=== PATIENT | female | born 1950 | race Caucasian/White ===

== ENCOUNTER 2017-01-07 14:30 | Inpatient (IN) | payer MEDICARE ==
[~2017-01-07] VITALS: Ht 162.5 cm; Wt 129.9 kg
--- NOTE | ~2017-01-07 | PR ---
[place], [place] PROGRESS NOTE NAME: RED STILL UNIT #: [id number] ROOM: 510 DOCTOR: CLAYTON GARCIA MD BIRTHDATE: [birth year] DOS: 01/11/2017 SUBJECTIVE: The patient stated she feels slightly better. Her cough is better than when she came in. OBJECTIVE: GENERAL: On exam today, she is awake and alert and oriented. VITAL SIGNS: Pressure is 119/54, pulse of 56, respirations 21, temperature 97.4. LUNGS: Diminished breath sounds. A few rales heard at the lung bases. HEART: Regular. ABDOMEN: Obese, soft. EXTREMITIES: Trace lymphedema noted. IMAGING DATA: Chest CT scan shows enlarged heart with trace pericardial effusion, multiple mediastinal and hilar and axillary lymph nodes, streaky consolidative opacities in upper lobes as well as right middle lobe and lower lobes. ASSESSMENT AND PLAN: 1. Urinary tract infection with Klebsiella pneumoniae, on antibiotics. 2. Multifocal pneumonia, on IV antibiotics. The patient does carry a diagnosis of rheumatoid arthritis and will need to be worked up for rheumatoid lung if she continues to have problems. Clinically, the patient feels that she is getting better. X-ray is pending this morning. If it looks improved, then we should be able to discharge the patient home on antibiotics, but I am waiting for Dr. Sanz to decide whether she can go home on p.o. Since it is an extensive pneumonia, she may need IV antibiotics. 3. Acute hypoxic respiratory failure. Oxygen saturation is improved. 4. Benign hypertension, controlled. CLAYTON GARCIA MD CM:PNTRANS [phone] CLAYTON GARCIA MD 01/11/17 0854 interface
--- NOTE | ~2017-01-07 | PR ---
[place], [place] PROGRESS NOTE [facility] [id number] UNIT #: [id number] ROOM: 510 DOCTOR: MOHINI STAHL MD,SOLO BIRTHDATE: [birth year] DOS: 01/09/2017 PULMONARY FOLLOWUP NOTE SUBJECTIVE: She has been still noticed with coughing with intermittent sputum expectoration. Denies any symptoms of chest pain or any abdominal pain. She has been noted with chronic lymphedema of lower extremities as well, which remains unchanged. She was noticed more comfortable at this time, sitting on the side of the bed this morning at the time of the assessment. OBJECTIVE: VITAL SIGNS: Shows a normal temperature, respiratory rate 18, heart rate 63, blood pressure 105/48. Pulse oxygen saturation of the patient recorded on 2 liters nasal cannula 97% saturation. HEENT: Chronic obesity. NECK: Supple, obese. CARDIOVASCULAR SYSTEM: S1, S2 is audible. LUNGS: Noted moderate decreased breath sounds with questionable wheezing, no crackles. ABDOMEN: Soft, nontender. LABORATORY DATA: The patient's sputum culture showing preliminary normal callie. The Gram stain was pending. Urine culture, the patient reported as having growth of Klebsiella pneumoniae, which are noted sensitive to multiple antibiotics. Blood culture from the for this patient showed no bacterial growth. CBC this morning was essentially noted as normal CBC. CT scan of the chest that I ordered yesterday for the patient was reviewed for this patient without contrast shows large area of consolidation, infiltration were noted of the patient in the lungs, which was present in the left lingula, left upper, right upper and the right middle lobe. Large amount of mediastinal fat for the patient was also noted secondary to chronic obesity. The mediastinal structure for the patient could not be assessed very clearly because of lack of IV contrast. However, small nonspecific lymphadenopathy was noted in the hilar area, precarinal area and possibly in the hilum as well. There were no pleural effusions. IMPRESSION: The patient with bilateral acute multilobar pneumonia for this patient with possible consideration of acute pneumonia secondary to aspiration, possibility of acute eosinophilic pneumonia with bacterial infection as well. PLAN OF TREATMENT: The patient will be ordered IV Solu-Medrol 40 mg b.i.d. for the ____ noninfectious etiology, current pulmonary infiltration, lymphadenopathy which was noted nonspecific, need to be further assessed as an outpatient. Continue in the meantime other previous treatment therapy, plan of management. Usual care. Monitor results of the sputum culture. Other supportive plan and management as well. Usual treatment, all other therapies. Monitor chest x-ray. The patient to be continued as patient for assessment in progression of the pulmonary infiltration. Repeat chest x-ray of patient was ordered to be done in the next couple of days. [place], [place] PROGRESS NOTE NAME: [facility] STILL [facility]: [id number] UNIT #: [id number] ROOM: [facility] DOCTOR: SOLO MONROY MD BIRTHDATE: [birth year] SOOL RAJAN MD CM:PNTRANS [phone] SOLO STAHL MD 01/10/17 0439 interface
--- NOTE | ~2017-01-07 | PR ---
[place], [place] PROGRESS NOTE NAME: RED STILL UNIT #: [id number] ROOM: 510 DOCTOR: SOLO MONROY MD BIRTHDATE: [birth year] DOS: 01/11/2017 PULMONARY PROGRESS NOTE SUBJECTIVE: She has been noted comfortable at this time, sitting on the side of the bed this morning. The coughing and shortness of breath for the patient has been improving progressively. Edema of the lower extremity of the patient has been noted to be stable as well. OBJECTIVE: VITAL SIGNS: For the patient which has been recorded showed the temperature of the patient noted as normal. The respiratory rate of the patient recorded as 18, heart rate of 68, blood pressure 133/40. Pulse oxygen saturation on 2 liters nasal cannula was 92% saturation recorded. HEENT: Examination shows head was atraumatic. Eyes nonicterus. NECK: Supple. CARDIOVASCULAR: S1, S2 is audible. LUNGS: Noted without any wheezing or crackles at the present time. ABDOMEN: Soft, obese. EXTREMITIES: Shows no new change. Chronic venous stasis and lymphedema. LABORATORY DATA: Chest x-ray of the patient that was done this morning showed reduction in previously noted pulmonary infiltration as compared to the previous chest x-ray. Creatinine for the patient today was noted as normal. IMPRESSION: The patient with resolving acute respiratory failure progressively of patient's current medical management with improving acute bacterial pneumonia as well as aspiration and acute eosinophilic in nature, responding to treatment very well. PLAN OF TREATMENT: Continuation of the current plan of management for the patient with bronchodilator. The dose of Solu-Medrol for the patient will be decreased to 40 mg daily as well. Other supportive therapy, plan and management to be continued. Discharge planning could be started for the patient as well. [place], [place] PROGRESS NOTE NAME: RED STILL UNIT #: [id number] ROOM: 510 DOCTOR: SOLO MONROY MD BIRTHDATE: [birth year] SOLO RAJAN MD CM:PNTRANS [phone] SOLO STAHL MD 01/13/17 0057 interface
--- NOTE | ~2017-01-07 | PR ---
[place], [place] [facility]GRESS NOTE [id number] UN[facility] #: [id number] ROOM: 510 DOCTOR: CLAYTON GARCIA MD BIRTHDATE: [birth year] DOS: 01/13/2017 SUBJECTIVE: The patient was seen by me yesterday morning. At that time, she did not have any complaints at all. Later on in the afternoon, the nursing staff called saying that the patient was increasingly short of breath and hypoxic and the chest x-ray in fact done yesterday showed improvement of the pneumonia, so 1 dose of diuretic IV was given and patient diuresed nicely. She does not have any complaints after that. She has been improving since then, she does not have any trouble during the night. OBJECTIVE: VITAL SIGNS: Graphic trend shows a pressure of 152/60, pulse of 82, respirations 20, temperature 98.7. LUNGS: Diminished breath sounds. HEART: Regular. ABDOMEN: Obese. EXTREMITIES: Trace edema in the lower legs and quite a lot of swelling in the feet. ASSESSMENT AND PLAN: 1. Hypoxic respiratory failure. It is possible that the patient is developing some diastolic congestive heart failure. Echocardiogram is pending today. Home assessment of O2 will be ordered today. 2. Multifocal pneumonia, on IV antibiotics, improvement clinically, we can discontinue the steroids. 3. Failure to thrive. The patient is getting PT, OT. CLAYTON GARCIA MD CM:PNTRANS CLAYTON GARCIA MD 01/13/1734 interface
--- NOTE | ~2017-01-07 | PR ---
[place], [place] PROGRESS NOTE [id number] UNIT #: [id number] ROOM: 510 DOCTOR: MOHINI STAHL MD,SOLO BIRTHDATE: [birth year] DOS: 01/12/2017 SUBJECTIVE: She has been noted without any acute respiratory symptoms of shortness of breath, coughing. There was no chest pain. Shortness of breath, the patient has been improving. There was no wheezing. OBJECTIVE: VITAL SIGNS: Blood pressure for the patient recorded 130/66, heart rate of 55, respiratory rate 18, temperature was normal. The pulse oxygen saturation of the patient recorded as 100% on 2 L nasal cannula. HEENT: Chronic obesity. NECK: Supple. CARDIOVASCULAR SYSTEM: S1, S2 audible. LUNGS: Noted without any wheezing or crackles. ABDOMEN: Soft, nontender. IMPRESSION: The patient with progressive resolution of bilateral lobar pneumonia. The patient secondary to aspiration, responding to treatment very well. PLAN OF TREATMENT: Continue the patient's current therapy, plan of management as in progress. Usual care. All other supportive plan of management. Consider possible discharge the patient in the morning from the pulmonary standpoint if needed. SOLO RAJAN MD CM:PNTRANS [phone] SOLO STAHL MD 01/12/17 1519 interface
--- NOTE | ~2017-01-07 | PR ---
[place], [place] PROGRESS NOTE NAME: RED STILL UNIT #: [id number] ROOM: 510 DOCTOR: RACHAEL ALCALA MD BIRTHDATE: [birth year] DOS: 01/12/2017 CARDIOLOGY FOLLOWUP VISIT NOTE REASON FOR VISIT: Bradycardia. SUBJECTIVE: The patient is feeling better. Less short of breath. Denies any dizziness or palpitations. No PND. No orthopnea. Edema is better. No nausea, vomiting, or diarrhea. No fever or chills. No cough. No hemoptysis. No blurred vision or double vision. RHYTHM STRIPS: The patient was in sinus rhythm, rate is 55-60. PHYSICAL EXAMINATION: VITAL SIGNS: Blood pressure of 130/66, pulse 58, respiratory rate is 18. GENERAL: Alert, comfortable, in no acute distress. The patient is sitting at the bedside in the chair. HEENT: Pupils are round and equal. No jaundice. Tongue is moist, and pharynx is clear. NECK: Supple. No distended neck veins. No carotid bruit. CHEST: Symmetrical, nontender. LUNGS: Few scattered rhonchi, but good air entry bilaterally. HEART: Regular rhythm, no S3. Grade 1/6 systolic murmur. ABDOMEN: Obese, nontender. Bowel sounds normal. EXTREMITIES: Showed chronic stasis dermatitis with edema. Distal pulses are fair. SKIN: Warm and dry. No cyanosis. NEUROLOGIC: The patient is alert and oriented. No focal neurologic deficits. IMPRESSION: 1. Sinus bradycardia, asymptomatic. Heart rates are much better once her Coreg was discontinued. 2. Hypertension, stable on current medications. 3. Chronic obstructive pulmonary disease. 4. Pneumonia. 5. Morbid obesity. RECOMMENDATIONS: 1. Continue current medications. 2. 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 3. History of symptomatic bradycardia with a heart rate of below 40 per minute, then she will benefit from a permanent pacemaker insertion. 4. Cardiology will see as needed, and we will follow her as an outpatient. Risk factor modification for compliance with medications, and diet, exercise, and weight loss were discussed. [place], [place] PROGRESS NOTE NAME: RED STILL UNIT #: [id number] ROOM: 510 DOCTOR: CARIRACHAEL ESTRADA MD BIRTHDATE: [birth year] RACHAEL ALCALA MD CM:PNTRANS 26 RACHAEL ALCALA MD 01/13/177 interface
--- NOTE | ~2017-01-07 | PR ---
[place], [place] PROGRESS NOTE NAME: RED STILL UNIT #: [id number] ROOM: 510 DOCTOR: MOHINI STAHL MD,SOLO BIRTHDATE: [birth year] DOS: 01/10/2017 PULMONARY FOLLOWUP NOTE SUBJECTIVE: She has been comfortably resting, sitting on the side of the bed. The edema of the lower extremity of the patient has been resolving. She has been noted with gradual reduction in the cough for this patient and sputum expectoration. Denies any chest pain. OBJECTIVE: VITAL SIGNS: Shows a normal temperature, respiratory rate 20, heart rate 57, blood pressure 107/52. Intake for the patient recorded as 1140 mL, output 775 mL. Pulse oxygen saturation on 2 liters nasal cannula was recorded 97% saturation. HEENT: Examination shows no acute change. NECK: Supple. CARDIOVASCULAR SYSTEM: S1, S2 audible. LUNGS: Shows moderate reduction in the breath sounds for the patient noted without any wheezing or crackles. ABDOMEN: Soft, nontender. EXTREMITIES: Still shows chronic obesity. IMPRESSION: The patient with acute aspiration pneumonia for this patient with possibility of eosinophilic pneumonia and bacterial infection, which has been treated with intravenous steroids, bronchodilators and the antibiotics. The sputum culture of the patient noted as normal callie. PLAN OF TREATMENT: The chest x-ray for the patient will be repeated tomorrow morning for the patient to reassess the response to the current treatment. In the meantime, continue other previous treatment therapy, plan and management, and usual care. Further treatment changes will be done based on the progression of the illness. SOLO RAJAN MD CM:PNTRANS [phone] SOLO STAHL MD 01/10/17 2334 interface
--- NOTE | ~2017-01-07 | CON ---
[place], [place] REPORT OF CONSULTATION NAME: RED STILL [facility] #: [id number] UNIT #: [id number] ROOM: 510 DOCTOR: SOLO MONROY MD BIRTHDATE: [birth year] DOS: 01/08/2017 PULMONARY CONSULTATION EVALUATION AND MANAGEMENT CONSULTATION REQUESTED BY: Dr. Zeke Portillo. REASON FOR CONSULTATION: To assess the patient for current acute respiratory problem. HISTORY OF PRESENT ILLNESS: This is a 66-year-old white female who has been admitted to the hospital because of having temperature elevation at home with cough, chest congestion and progressive increased shortness of breath. The symptoms of the patient have been noted with gradual worsening prior to presentation to the hospital. The cough has been noted with intermittent sputum expectoration. There were no symptoms of chest pain. She does complain of tightness in the chest. She is also noted with some wheezing as well. REVIEW OF SYSTEMS: CONSTITUTIONAL: Noted progressive fatigue and tiredness with fever at home. Denies any chills. Denies changes in appetite. EYES: Denies any burning, redness, or tenderness. EARS, NOSE, THROAT: No sore throat, hoarseness, otalgia, or postnasal drainage. CARDIOVASCULAR: Denies anginal pain, edema or pain of the lower extremities. GASTROINTESTINAL: Denies dysphagia, nausea, vomiting, diarrhea, abdominal pain, hematemesis, melena, or hematochezia. SKIN: Denies lesions or rashes. MUSCULOSKELETAL: Denies acute joint pain, redness, or tenderness. CENTRAL NERVOUS SYSTEM: Denies dizziness, headache or diplopia. Remaining systems were reviewed with the patient, they were noted all negative. PAST MEDICAL HISTORY: 1. Known to me, past in 2013 admission, the patient was treated for acute bacterial pneumonia, left-sided which has been treated with chest tube thoracostomy with complete resolution subsequently noted afterwards. 2. Previous history of congestive heart failure with diastolic dysfunction. 3. Chronic severe obesity. 4. History of stasis dermatitis of the lower extremity and chronic lymphedema. 5. Essential hypertension. 6. Ambulatory dysfunction with use of a walker. SOCIAL HISTORY: The patient is a nonsmoker lifetime. Denies any history of alcohol use or any illicit drug use. She is and has 2 children. FAMILY HISTORY: The patient's mother at age of 7878 years old, complications of metastatic cancer, unknown primary. Father at age of 7474 years old from complication related to the colon cancer. PAST SURGICAL HISTORY: The patient noted with left chest tube thoracostomy that was done in 2012 for the medical management of the pleural fluid for this [place], [place] REPORT OF CONSULTATION NAME: RED STILL UNIT #: [id number] ROOM: 510 DOCTOR: MOHINI STAHL MD,SOLO BIRTHDATE: [birth year] patient's management related to acute bacterial pneumonia. No other major surgeries were reported. MEDICATIONS: Current administered medications noted as use of lisinopril, Norvasc, Coreg, DuoNeb, Zithromax, Rocephin and econazole cream. DRUG ALLERGY HISTORY: Noted as no known drug allergies. PHYSICAL EXAMINATION: GENERAL: This is a 66-year-old female who has been currently noted sitting on the chair without any distress. Height of 5 feet 4 inches, weight of 286 pounds, BMI 49.1. VITAL SIGNS: Showed normal temperature, respiratory rate of 18-24, heart rate 67-69, blood pressure 116/50-136/50. Intake for the patient was 1300 mL, output 175 mL. Pulse oxygen saturation on 2 liters nasal cannula was 94%, with room air 94% saturation. HEENT: Chronic severe obesity. Head was atraumatic. Eyes nonicterus. NECK: Supple and obese. CARDIOVASCULAR SYSTEM: S1, S2 is audible. LUNGS: The patient was noted with moderate reduction in the breath sounds bilaterally, scattered crackles of the left lung. ABDOMEN: Soft, nontender. EXTREMITIES: The patient shows chronic venous stasis pigmentation 1-2+ pitting edema. CENTRAL NERVOUS SYSTEM: Cranial nerves 2-12 intact. No focal deficit. MUSCULOSKELETAL: No deformities or redness. SKIN: Shows chronic venous dermatitis changes in the patient's lower extremity without any ulcers or rashes. LABORATORY DATA: CBC of the patient that was done today showed WBC count 12.0, hemoglobin and hematocrit was normal, platelet count of the patient noted as normal. CMP of the patient that was done on 01/07/2017 shows BUN normal, creatinine was normal. Total bilirubin 1.8, albumin 2.8. Lactic acid 2.3, follow up lactic acid 1.3 in less than 24 hours. CBC this morning, normal CBC. BMP this morning was noted as normal except potassium mildly decreased at 3.3. Urine culture shows heavy growth of gram negative bacilli. Chest x-ray of the patient that was done, PA lateral view was noted with diffuse interstitial changes of the patient with possible consolidation for the patient and other findings noted diffusely in the right lung for this patient with right hilar prominence. Similar scattered finding of nodular infiltration noted in the left lung as well. Pleural thickening of the patient noted loculated in the left lower lobe, pleural thickening which is identified as well as in 2014. IMPRESSION: 1. The patient who has been currently admitted to the hospital with symptom description of possibility of acute pneumonia bilaterally; however, superimposed congestive heart failure, diastolic dysfunction to be considered in addition to that with current acute symptoms. 2. Pleural thickening for the patient in the left lower lung or other etiologies to be considered in left lung, may be related to past pneumonia and [place], [place] REPORT OF CONSULTATION NAME: RED STILL UNIT #: [id number] ROOM: 510 DOCTOR: SOLO MONROY MD BIRTHDATE: [birth year] chest tube thoracostomy in 2012. 3. Severe morbid obesity as well. 4. Acute hypoxic respiratory failure secondary to the above. 5. Possibility of hilar lymphadenopathy. PLAN OF TREATMENT: CT scan of the chest will be ordered with IV contrast for the patient for more clear assessment of current parenchymal problems in the hilar area. Continuation of the other previous treatment plan of management at this time including the sputum culture of the patient once the patient expectorates be sent for culture. Monitor blood cultures. Oxygen supplementation, maintain saturation 92% or greater. Use of the bronchodilators to help mobilize the secretions. Further change in treatment will be done based on the progression of the illness and after the assessment of the CT scan of the chest. Use of the DVT prophylaxis for this patient with Lovenox as well. Thanks for allowing me to participate in the care of this patient. SOLO RAJAN MD CM:CONSTR:REPORT OF CONSULTATION 1255 01/09/17 0106 interface
--- NOTE | ~2017-01-07 | PR ---
[place], [place] PROGRESS NOTE NAME: [facility] [id number] UNIT #: [id number] ROOM: 510 DOCTOR: CELINA AVALOS MD BIRTHDATE: [birth year] DOS: 01/08/2017 SUBJECTIVE: The patient is starting to breathe better and her urinary burning is also improving. OBJECTIVE: GENERAL APPEARANCE: The patient is alert and oriented x 3, in no visible distress, except for obesity and generalized weakness. VITAL SIGNS: Blood pressure 116/50, heart rate of 67 beats per minute, breathing 20 times per minute, temperature 98 degrees Fahrenheit. HEENT AND NECK: Exam within normal limits. CARDIOVASCULAR SYSTEM: Heart rate is regular in rate and rhythm. S1 and S2 normally audible. LUNGS: Clear to auscultation. ABDOMEN: Soft, nontender. No obvious organomegaly. Bowel sounds are present. EXTREMITIES: Without significant cyanosis or edema. IMPRESSION: 1. The patient with early sepsis and leukocytosis, white cell count has normalized with treatment with antibiotics. At presentation, the patient had lymphopenia on the differential count, right upper and middle lobe pneumonia with infiltrates and urinary tract infection with too numerous to count wbc's. 2. Urinary tract infection. Urine culture is still pending. 3. Right buttock stage 2 decubitus ulcer being followed and treated. 4. Advanced disability. We are taking bed sore precaution including every 2 hour turning and using air mattress and physical therapy on consult. 5. Benign essential hypertension. Blood pressure is being monitored and controlled. CELINA AVALOS MD CM:PNTRANS [phone] CELINA AVALOS MD 01/08/171921 interface
--- NOTE | ~2017-01-07 | PR ---
[place], [place] PROGRESS NOTE NAME: RED STILL UNIT #: [id number] ROOM: 510 DOCTOR: SOLO MONROY MD BIRTHDATE: [birth year] DOS: 01/13/2017 SUBJECTIVE: She has been noted comfortable at this time. The patient denies symptoms of chest pain or any abdominal pain. The respiratory symptom of the patient has been gradually subsiding. OBJECTIVE: VITAL SIGNS: For the patient, which has been recorded showed the temperature recorded as normal. The respiratory rate 20, heart rate 82, blood pressure 152/60. Intake 2000, output 5.25 liters. Negative fluid balance of 3.2 liters. Pulse oxygen saturation on 3 liters cannula 93% saturation recorded. HEENT: Chronic obesity. NECK: Supple. CARDIOVASCULAR: S1, S2 is audible. LUNGS: The patient noted without any wheezing or crackles at the present time. ABDOMEN: Soft, nontender. LABORATORY DATA: CBC of this morning: WBC count 11.4. Remaining CBC was grossly normal. Creatinine was noted as normal today. IMPRESSION: 1. The patient with gradual and progressive resolution of acute multifocal pneumonia with aspiration with Gram-positive cocci for this patient effectively and gradually. 2. Acute congestive heart failure and edema of the lower extremity with chronic lymphedema as well. Diuretic therapy has been continued. The patient noted significant negative fluid balance. 3. Severe debility. PLAN OF TREATMENT: Obtain another chest x-ray in the morning. Continuation of the other previous treatment plan and management as in progress. Usual care. Further treatment changes will be done based on the progression of the illness. The patient has been ordered physical therapy and occupational therapy by the primary care attending of this patient, Dr. Yudelka Fu. Oxygen supplementation continued to be titrated for this patient down to maintain a saturation 92% or greater. [place], [place] PROGRESS NOTE NAME: RED STILL UNIT #: [id number] ROOM: 510 DOCTOR: SOLO MONROY MD BIRTHDATE: [birth year] SOLO RAJAN MD CM:PNTRANS [id number] SOLO STAHL MD 01/13/17 1109 interface
--- NOTE | ~2017-01-07 | DS ---
[place], [place] DISCHARGE SUMMARY NAME: [facility] #: [id number] UNIT #: [id number] ROOM: 510 DOCTOR: CELINA AVALOS MD BIRTHDATE: [birth year] DOS: 01/14/2017 DISCHARGE DIAGNOSES: 1. The patient with multifocal pneumonia on the chest x-ray, treated with antibiotics and followed by Dr. Sanz, the lunchroom aide, suspected gram-positive cocci and aspiration pneumonia. 2. 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 3. Morbid obesity, generalized weakness, chronic hypoxemia and long-term prognosis is suboptimal. 4. Hypoxic respiratory failure, resolved. The patient requires oxygen now. 5. Chronic obstructive pulmonary disease and chronic shortness of breath and oxygen dependence with chronic respiratory failure. 6. The patient with left ventricular hypertrophy. 7. Chronic leg edema bilaterally and stasis dermatitis. 8. Ambulatory dysfunction. The patient walks with the help of a walker. HOSPITAL COURSE: The patient was admitted to [facility] when she presented to the Emergency Department with increased shortness of breath, cough, fever and chills. The patient was found to have multifocal bronchopneumonia in the right upper and middle lobes and also suspected to have aspiration pneumonia according to lunchroom aide, Dr. Sanz. The patient was found to be septic and admitted for further management with good coverage with antibiotics. She had a white cell count elevated at 12,000, some lymphopenia, right upper and middle lobe pneumonic infiltrates and she was treated with azithromycin and Rocephin. The patient's breathing has improved, but she remains overall in poor health. The patient is insisting on going home with her son today. The patient had achieved maximum benefit from this admission and treated with antibiotics and she can be discharged to home on home oxygen and follow up with her primary care physician this week. The patient will be sent home if cleared by Dr. Sanz for discharge. 1. Urinary tract infection. Urine cultures grew Klebsiella pneumoniae, which was appropriately treated with antibiotics. It was sensitive to all antibiotics on the culture panel. 2. Old age, obesity, generalized weakness and failure to thrive. The patient worked with physical therapy. 3. Benign essential hypertension with controlled blood pressures with treatment. 4. Right buttock stage 2 decubitus, followed and treated, was present at admission. DISCHARGE MANAGEMENT: Coreg 25 mg b.i.d., lisinopril 40 mg a day, amlodipine 5 mg a day, DuoNebs every 4 hours as needed for breathing. Follow up with her PCP within 1 week of discharge. The patient's methotrexate was held back because of her pneumonia and infection, but she can restart it at home since her infection has been treated. The patient was kept on DVT prophylaxis with Lovenox. [place], [place] [facility]CHARGE [id number] #: [id number] ROOM: [facility] DOCTOR: CELINA AVALOS MD BIRTHDATE: [birth year] CELINA AVALOS MD CM:PIERCE [id number] CELINA AVALOS MD 01/14/17 4259 interface
--- NOTE | ~2017-01-07 | PR ---
[place], [place] PROGRESS NOTE NAME: [facility] UNIT #: [id number] ROOM: 510 DOCTOR: SOLO MONROY MD BIRTHDATE: [birth year] DOS: 01/14/2017 PULMONARY PROGRESS NOTE SUBJECTIVE: She has been noted with the elastic stocking in place. Noted chronic lymphedema, despite her symptoms, has been gradually subsiding. Denies any symptoms of chest pain. General weakness, fatigue was described. OBJECTIVE: VITAL SIGNS: Normal temperature, respiratory rate 16, heart rate 72, blood pressure 122/55. Pulse oxygen saturation on 2 liters nasal cannula was 92% saturation recorded as well. HEENT: Shows head was atraumatic. Eyes nonicterus. NECK: Supple. CARDIOVASCULAR: S1, S2 audible. LUNGS: Noted without any wheeze or crackle at the present time. ABDOMEN: Soft and nontender. LABORATORY DATA: BMP this morning was noted as BUN 14, creatinine 0.52 and carbon dioxide 35. CBC this morning was essentially noted grossly normal. Chest x-ray that was done this morning shows bilateral interstitial markings noted with small pleural effusions at this time. IMPRESSION: The patient who has been currently noted with: 1. Gradual reduction and resolution of acute congestive heart failure. 2. Severe chronic obesity as well. 3. Acute congestive heart failure was noted as well. 4. Chronic lymphedema of the lower extremities as well. 5. Multifocal pneumonia, clinically resolving with reduction of the infiltration noted in the chest x-ray. PLAN OF TREATMENT: No changes from the pulmonary standpoint at this time. Continue the patient with current therapy, plan of care. Other usual medical management, plan of care. Supportive care, other treatments. [place], [place] PROGRESS NOTE NAME: [facility] UNIT #: [id number] ROOM: 510 DOCTOR: SOLO MONROY MD BIRTHDATE: [birth year] SOLO RAAJN MD CM:PNTRANS [id number] SOLO STAHL MD 01/15/17 0212 interface
--- NOTE | ~2017-01-07 | WRIGHTHP ---
[place], [place] PATIENT HISTORY AND PHYSICAL EXAM NAME: [facility] #: [id number] UNIT #: [id number] ROOM: 510 DOCTOR: CELINA AVALOS MD BIRTHDATE: [birth year] DOS: 01/07/2017 HISTORY OF PRESENT ILLNESS: The patient is a 66-year-old female with a past medical history of: 1. LVH and diastolic type CHF. 2. History of morbid obesity. 3. Chronic leg edema and stasis dermatitis. 4. Benign essential hypertension. 5. Ambulatory dysfunction and patient walks with the help of a walker. The patient presented to the Emergency Department at [facility] with 1 week complaints of increasing shortness of breath, cough and fever and chills. In the ER, the patient was found to have acute bronchopneumonia in the right upper lobe and middle lobe and she was found to be septic and recommended for admission for further management. The patient has been admitted to a monitored bed and she is starting to feel better with initial treatment in the ER. REVIEW OF SYSTEMS: LUNGS: Increased shortness of breath and chest congestion with cough. GASTROINTESTINAL: No nausea, vomiting, but the patient had diarrhea a week ago. CARDIOVASCULAR: No chest pain, no palpitations. SOCIAL HISTORY: The patient lives at home with her . Denies smoking cigarettes, alcohol or any drug abuse. HOME MEDICATIONS: Include lisinopril, amlodipine, Coreg, DuoNebs. ALLERGIES: No known drug allergies. PHYSICAL EXAMINATION: GENERAL: Alert and oriented x 3, morbidly obese, quite weak, but in no visible distress. LUNGS: Show fine crackles in the right middle and upper lung. EXTREMITIES: 1 to 2+ chronic leg and pedal edema. LABORATORY DATA: Chest x-ray results as mentioned above. Normal serum electrolytes, bilirubin elevated to 1.8, albumin low at 2.8. Lactic acid level was normal. IMPRESSION: 1. The patient presenting with sepsis. She has leukocytosis with white cell count of 12,000. She has lymphopenia on differential count. Right upper and middle lobe pneumonic infiltrates and a urinary infection with too numerous to count wbc's. The patient is being started on antibiotics with Rocephin and azithromycin and Dr. Sanz, the pipeline gang supervisor is being consulted and the patient was being monitored closely. 2. Urinary tract infection, being treated with antibiotics. I will wait for urine cultures and adjust treatment as necessary. 3. Right buttock stage 2 decubitus ulcer, which will be appropriately treated. [place], [place] PATIENT HISTORY AND PHYSICAL EXAM NAME: [facility] UNIT #: [id number] ROOM: [facility] DOCTOR: CELINA AVALOS MD BIRTHDATE: [birth year] 4. Advanced disability, taking bedsore precaution including every 2 hour turning, air mattress is being used and we are taking fall precautions, Physical Therapy will work with her. 5. Benign essential hypertension with controlled blood pressures. We will continue to monitor her blood pressures and treat accordingly. CELINA AVALOS MD CM:HISPHYS:PATIENT HISTORY AND PHYSICAL EXAMINATION [phone] CELINA AVALOS MD 01/07/17 2001 interface
--- NOTE | ~2017-01-07 | CON ---
[place], [place] REPORT OF CONSULTATION [id number] UN[facility] #: [id number] ROOM: 510 DOCTOR: RACHAEL ALCALA MD BIRTHDATE: [birth year] DOS: 01/11/2017 REASON FOR CONSULTATION: Bradycardia. CLINICAL HISTORY: The patient is a 66-year-old patient with history of morbid obesity, hypertension, diastolic dysfunction, came to the Emergency Room for 1 week history of progressive shortness of breath and cough as well as some fever. She was diagnosed to have pneumonia on the right upper lobe and middle lobe and admitted to the hospital and due to her sinus bradycardia, Cardiology was consulted. She denies any chest pain, dizziness or syncope. No edema, no orthopnea. Breathing is much better. No PND. No palpitations. No tingling, numbness or weakness. No blurred vision, double vision. No nausea, vomiting, diarrhea. No dysuria, no hemoptysis. REVIEW OF SYSTEMS: Review of the 8 systems negative except as mentioned above. PAST MEDICAL HISTORY: 1. Hypertension. 2. Morbid obesity. 3. Chronic stasis dermatitis. 4. Diastolic heart failure. PAST SURGICAL HISTORY: No significant surgical history. ALLERGIES: No known drug allergies. FAMILY HISTORY: The patient's mother at the age of 78 from metastatic cancer. Father at the age of 74 from colon cancer. HOME MEDICATIONS: Reviewed. SOCIAL HISTORY: The patient does not smoke or drink. No illicit drugs. PHYSICAL EXAMINATION: VITAL SIGNS: Blood pressure 132/62, pulse of 56, respiratory rate 18, weight of 129.9 kg. GENERAL: Alert, comfortable, in no acute distress. HEENT: Pupils are round and equal. No jaundice. Tongue was moist and pharynx was clear. NECK: Supple, no distended neck veins, no carotid bruit. CHEST: Nontender. LUNGS: Few scattered rhonchi. HEART: Regular rhythm. No S3. Grade 1/6 systolic murmur. ABDOMEN: Obese, nontender. Bowel sounds normal. EXTREMITIES: Showed 1+ edema, chronic stasis dermatitis. The patient did have decubitus ulcer on the right buttock. SKIN: Warm and dry. No cyanosis. NEUROLOGIC: The patient is alert, oriented. No focal neurologic deficit. RECTAL: Deferred. GENITOURINARY: Deferred. [place], [place] REPORT OF CONSULTATION NAME: [facility] UNIT #: [id number] ROOM: 510 DOCTOR: CARI COX,RACHAEL BIRTHDATE: [birth year] REVIEW OF THE DIAGNOSTIC TESTS: EKG rhythm strips and labs reviewed. IMPRESSION: 1. Sinus bradycardia, asymptomatic. 2. Hypertension. 3. Chronic stasis dermatitis. 4. Pneumonia. 5. Hypertension. 6. Morbid obesity. 7. Decubitus ulcer. RECOMMENDATIONS: 1. She denies any chest pain or shortness of breath. 2. I will discontinue her beta bryanna. Continue rest of the blood pressure medications. 3. Once the heart rate get better, I would resume a low-dose Coreg at 3.125 twice a day. 4. She did have an echo and stress test a couple of years ago, I would consider 2D echo either Friday or as an outpatient. 5. Check TSH to rule out hypothyroidism. 6. Risk factor modification was discussed. 7. Further recommendations will be depending on her symptoms and her heart rates. RACHAEL ALCALA MD CM:CONSTR:REPORT OF CONSULTATION 2240 01/12/17 0023 interface
--- NOTE | ~2017-01-07 | PR ---
[place], [place] [facility]GRESS NOTE [id number] #: [id number] ROOM: 510 DOCTOR: CELINA AVALOS MD BIRTHDATE: [birth year] DOS: 01/10/2017 SUBJECTIVE: The patient says her breathing has much improved. OBJECTIVE: GENERAL APPEARANCE: The patient is alert and oriented x 3, in no visible distress except for obesity. VITAL SIGNS: Blood pressure 107/52, heart rate of 62 beats per minute, afebrile, pulse ox of 96% with oxygen. The patient says she does not take oxygen at home. HEENT AND NECK: Exam within normal limits. CARDIOVASCULAR SYSTEM: Heart rate is regular in rate and rhythm. S1 and S2 normally audible. LUNGS: Decreased breath sounds all over. ABDOMEN: Soft, nontender. No obvious organomegaly. Bowel sounds are present. EXTREMITIES: Without significant cyanosis or edema. IMPRESSION: 1. The patient with early sepsis and leukocytosis resolved with antibiotic treatment. The patient had right upper and middle lobe pneumonia, will be rechecked with a chest x-ray tomorrow. Dr. Sanz is following. 2. Hypoxemia with pneumonia. Pulse ox improving. I have taken the patient's oxygen off and we will check a room air pulse ox with ambulation. Discussed with the patient's nurse, Danielle today. 3. Urinary tract infection with Klebsiella pneumoniae sensitive to all antibiotics. The patient being treated with ceftriaxone. 4. Morbid obesity and generalized weakness, disability and adult failure to thrive. We are taking bedsore precautions. The patient on physical therapy. We are taking fall precautions. 5. Benign essential hypertension with controlled blood pressures. CELINA AVALOS MD CM:PNTRANS [phone] CELINA AVALOS MD 01/11/17 0446 interface
--- NOTE | ~2017-01-07 | PR ---
[place], [place] PROGRESS NOTE [facility] [id number] UNIT #: [id number] ROOM: 510 DOCTOR: CELINA AVALOS MD BIRTHDATE: [birth year] DOS: 01/09/2017 SUBJECTIVE: The patient presenting with sepsis, now she is looking better, feeling stronger and breathing better. OBJECTIVE: GENERAL: The patient is well developed and appropriate for usual state of health in no apparent distress. Generalized weakness. VITAL SIGNS: Blood pressure 105/48, heart rate 63 beats per minute, breathing 18 times per minute, temperature 98 degrees Fahrenheit. HEENT: Pupils equal, round, and reactive to light. EOMI. There is no scleral icterus. NECK: C-spine is soft and supple, there is no meningismus. There is no cervical lymphadenopathy. LUNGS: Clear to auscultation bilaterally. There are no rales, wheezes or rhonchi. HEART: Regular rate and rhythm, no murmurs, clicks, rubs or gallops. ABDOMEN: Obesity. Soft, nontender, nondistended. There are bowel sounds in all four quadrants. No rebound or guarding. EXTREMITIES: There is no peripheral cyanosis or edema. No focal swelling or erythema. NEURO: The patient moves all four extremities with 5/5 strength. Cranial nerves II - XII are intact. Normal gait. Alert and oriented SKIN: There is no apparent rash or petechiae. HEME/LYMPHATIC: There is no evidence of excessive bruising or lymphedema. PSYCHIATRIC: The patient does not appear anxious or depressed. IMPRESSION: 1. The patient with early sepsis and leukocytosis, resolved with treatment with antibiotics. The patient also had lymphopenia and right upper and middle lobe pneumonia. 2. Right upper and lower lobe pneumonic infiltrates. I will repeat a chest x-ray tomorrow morning. 3. Urinary tract infection. Treated with antibiotics. The patient grew more than 100,000 colonies of Klebsiella pneumoniae sensitive to all antibiotics. The patient treated with ceftriaxone. 4. Urine culture growing positive for Klebsiella pneumoniae, more than 100,000 colonies as mentioned above. 5. Sputum cultures grew normal callie. Blood cultures were negative. 6. Obesity. Generalized weakness and advanced disability. We are taking bedsore precautions including every 2 hour turning and using an air mattress as well as taking fall precaution and the patient working with physical therapy. 7. Benign essential hypertension. Blood pressures are being monitored and controlled. [place], [place] PROGRESS NOTE NAME: [facility] UNIT #: [id number] ROOM: [facility] DOCTOR: CELINA AVALOS MD BIRTHDATE: [birth year] CELINA AVALOS MD CM:PNTRANS [id number] [id number] CELINA AVALOS MD 01/10/17 1335 interface
--- NOTE | ~2017-01-07 | PR ---
[place], [place] PROGRESS NOTE [id number] UN[facility] #: [id number] ROOM: 510 DOCTOR: CLAYTON GARCIA MD BIRTHDATE: [birth year] DOS: SUBJECTIVE: The patient is doing fine without any complaints. She is sitting up and eating her breakfast today. Appreciate cardiology consultation. OBJECTIVE: VITAL SIGNS: Blood pressure is 127/51, pulse of 50, respirations 21, temperature 97.7. LUNGS: Diminished breath sounds, clearer this morning. HEART: Regular. ABDOMEN: Obese. EXTREMITIES: Trace edema. Chest x-ray shows improvement in the consolidation bilaterally. ASSESSMENT AND PLAN: 1. Multifocal pneumonia on possible gram negative, on IV antibiotics. 2. Urinary tract infection with Klebsiella, on antibiotics. 3. Benign hypertension, controlled. 4. Bradycardia, possibly from Coreg. Echocardiogram is ordered for tomorrow and then the Coreg is on hold and the patient to be restarted on Coreg at smaller dose at a later time. The plan is to discharge her to home tomorrow after the echo was performed. CLAYTON GARCIA MD CM:PNTRANS [id number] CLAYTON GARCIA MD 01/12/17 1004 interface
[~2017-01-07 14:30] MED LIST: BACTROBAN2% TP; CARVEDILOL3.125 MG PO; COREG25 MG PO; DUONEB 3ML 3 MG/3 ML INH; FUROSEMIDE40 MG PO; HYDR12.5C PO; HYDR25T PO; K-Dur 20MEQ20 MEQ PO; LISINOPRIL2.5 MG PO; LISINOPRIL40 MG PO; Lovenox40 MG/0.4 SC; MAXIPIME1 GM IV; POTASSIUM20 MEQ PO; PULMICORT0.5 MG/2 M NEB; TYLENOL 8 HOUR650 MG PO; ZITHROMAX Z-PA250 MG PO
[2017-01-07 14:38] VITALS: BP 130/52
[2017-01-07 14:52] VITALS: BP 136/50
[2017-01-07 15:29] LABS: BASO % 0.3 % (0.0-1.0); EOS # 0.3 10*3/uL (0.0-0.4); EOS % 2.6 % (1.0-4.0); HEMATOCRIT 43.6 % (37.0-47.0); HEMOGLOBIN 13.9 g/dl (12.0-16.0); IG # 0.1 10*3/uL (0.0-0.1); LYMPH % 8.4 % (27.0-41.0); MEAN CELL VOLUME 94.2 fl (81.0-99.0); MEAN CORPUSCULAR HGB CONC 31.9 g/dl (33.0-37.0); MEAN PLATELET VOLUME 10.2 fl (9.6-12.3); MONO # 1.5 10*3/uL (0.1-1.0); MONO % 12.5 % (3.0-9.0); NEUT # 9.1 10*3/uL (2.3-7.9); NEUT % 75.6 % (47.0-73.0); PLATELET COUNT AUTOMATED 232 10*3/uL (130-400); RED BLOOD COUNT 4.63 10*6/uL (4.10-5.10); RED CELL DISTRI WIDTH 15.2 % (0-14.5)
[2017-01-07 15:35] LABS: ALBUMIN 2.8 gm/dl (3.1-4.5); ALKALINE PHOSPHATASE 81 U/L (45-117); BILIRUBIN, TOTAL 1.8 mg/dl (0.2-1.0); BUN 9 mg/dl (7-24); CARBON DIOXIDE 27 mmol/L (21-32); CHLORIDE 100 mmol/L (98-107); EST GLOM FILT AFRICAN AMERICAN > 60 ml/min; GLUCOSE 117 mg/dL (65-99); POTASSIUM 3.7 mmol/L (3.5-5.1); SGOT/AST 14 IU/L (3-35); SGPT/ALT 12 U/L (12-78); SODIUM 138 mmol/L (136-145); TOTAL PROTEIN 7.8 gm/dL (6.4-8.2)
[2017-01-07 16:06] LABS: BILIRUBIN 2+ (NEGATIVE); BLOOD 3+ (NEGATIVE); CLARITY SL CLOUDY (CLEAR); COLOR RED (YELLOW); GLUCOSE NEGATIVE (NEGATIVE); KETONE TRACE (NEGATIVE); LEUKO ESTERASE 2+ (NEGATIVE); NITRITE POSITIVE (NEGATIVE); PH 5.5 (5.0-9.0); PROTEIN 2+ (NEGATIVE); SPECIFIC GRAVITY 1.025 (1.005-1.030); UROBILINOGEN >= 8.0 E.U./dl (0.2-1.0)
[2017-01-07 16:20] LABS: BACTERIA 4+; MUCOUS TRACE; RBC TNTC rbc/hpf (0-2); URINE REFLEX COMMENT YES (NO); WBC TNTC wbc/hpf (0-5)
[2017-01-07 17:09] VITALS: BP 129/55
[2017-01-07 17:18] LABS: LA>2 REFLEX 2 HR DRAW NOW
[2017-01-07 17:51] VITALS: BP 109/89
[2017-01-07] MEDS ORDERED: ECONAZOLE NITRATE11 T (18:21)
[2017-01-07] MEDS ORDERED: AMLODIPINE BES1 CAP PO (18:22)
[2017-01-07] MEDS ORDERED: ENBREL50 MG/1 ML SQ (18:26)
[2017-01-07] MEDS ORDERED: RASUVO15 MG/0.3 SC (18:27)
[2017-01-07 20:00] VITALS: BP 112/55
[2017-01-08] VITALS: BP 128/44
[2017-01-08 06:44] LABS: BASO % 0.1 % (0.0-1.0); EOS # 0.2 10*3/uL (0.0-0.4); EOS % 2.3 % (1.0-4.0); HEMATOCRIT 40.5 % (37.0-47.0); HEMOGLOBIN 12.9 g/dl (12.0-16.0); IG # 0.1 10*3/uL (0.0-0.1); LYMPH # 0.7 10*3/uL (1.3-4.4); LYMPH % 7.6 % (27.0-41.0); MEAN CELL VOLUME 93.8 fl (81.0-99.0); MEAN CORPUSCULAR HGB 29.9 pg (27.0-31.0); MEAN CORPUSCULAR HGB CONC 31.9 g/dl (33.0-37.0); MEAN PLATELET VOLUME 10.1 fl (9.6-12.3); MONO # 0.7 10*3/uL (0.1-1.0); MONO % 7.1 % (3.0-9.0); NEUT # 7.7 10*3/uL (2.3-7.9); NEUT % 82.4 % (47.0-73.0); PLATELET COUNT AUTOMATED 199 10*3/uL (130-400); RED BLOOD COUNT 4.32 10*6/uL (4.10-5.10); RED CELL DISTRI WIDTH 15.1 % (0-14.5); WHITE BLOOD COUNT 9.3 10*3/uL (4.8-10.8)
[2017-01-08 07:23] LABS: CHLORIDE 101 mmol/L (98-107); GLUCOSE 102 mg/dL (65-99); POTASSIUM 3.3 mmol/L (3.5-5.1); SODIUM 137 mmol/L (136-145)
[2017-01-08 07:29] LABS: BUN 14 mg/dl (7-24); CARBON DIOXIDE 26 mmol/L (21-32); EST GLOM FILT AFRICAN AMERICAN > 60 ml/min
[2017-01-08 08:00] VITALS: BP 116/50
[2017-01-08 12:00] VITALS: BP 105/48
[2017-01-08 16:00] VITALS: BP 116/55
[2017-01-08 20:00] VITALS: BP 104/43
[2017-01-09] VITALS: BP 101/46
[2017-01-09 06:12] LABS: BASO % 0.2 % (0.0-1.0); EOS # 0.5 10*3/uL (0.0-0.4); HEMATOCRIT 39.7 % (37.0-47.0); HEMOGLOBIN 12.9 g/dl (12.0-16.0); LYMPH # 0.8 10*3/uL (1.3-4.4); LYMPH % 9.3 % (27.0-41.0); MEAN CORPUSCULAR HGB 30.2 pg (27.0-31.0); MEAN CORPUSCULAR HGB CONC 32.5 g/dl (33.0-37.0); MEAN PLATELET VOLUME 10.7 fl (9.6-12.3); MONO # 0.8 10*3/uL (0.1-1.0); NEUT # 6.2 10*3/uL (2.3-7.9); PLATELET COUNT AUTOMATED 222 10*3/uL (130-400); RED BLOOD COUNT 4.27 10*6/uL (4.10-5.10); RED CELL DISTRI WIDTH 15.1 % (0-14.5); WHITE BLOOD COUNT 8.4 10*3/uL (4.8-10.8)
[2017-01-09 08:00] VITALS: BP 124/56
[2017-01-09 12:00] VITALS: BP 105/48
[2017-01-09 16:00] VITALS: BP 107/49
[2017-01-09 20:00] VITALS: BP 115/50
[2017-01-10] VITALS: BP 108/46
[2017-01-10 06:22] LABS: BASO % 0.2 % (0.0-1.0); EOS # 0.1 10*3/uL (0.0-0.4); EOS % 0.9 % (1.0-4.0); HEMATOCRIT 37.9 % (37.0-47.0); HEMOGLOBIN 12.4 g/dl (12.0-16.0); LYMPH # 0.6 10*3/uL (1.3-4.4); LYMPH % 9.2 % (27.0-41.0); MEAN CELL VOLUME 90.5 fl (81.0-99.0); MEAN CORPUSCULAR HGB 29.6 pg (27.0-31.0); MEAN CORPUSCULAR HGB CONC 32.7 g/dl (33.0-37.0); MEAN PLATELET VOLUME 10.8 fl (9.6-12.3); MONO # 0.5 10*3/uL (0.1-1.0); MONO % 7.9 % (3.0-9.0); NEUT # 5.4 10*3/uL (2.3-7.9); NEUT % 81.5 % (47.0-73.0); PLATELET COUNT AUTOMATED 227 10*3/uL (130-400); RED BLOOD COUNT 4.19 10*6/uL (4.10-5.10); RED CELL DISTRI WIDTH 14.7 % (0-14.5); WHITE BLOOD COUNT 6.6 10*3/uL (4.8-10.8)
[2017-01-10 08:00] VITALS: BP 107/52
[2017-01-10 16:00] VITALS: BP 116/45
[2017-01-10 20:00] VITALS: BP 121/76
[2017-01-11] VITALS: BP 119/54
[2017-01-11 06:45] LABS: EST GLOM FILT AFRICAN AMERICAN > 60 ml/min
[2017-01-11 08:00] VITALS: BP 132/62
[2017-01-11 12:00] VITALS: BP 136/78
[2017-01-11 16:00] VITALS: BP 133/40
[2017-01-11 20:00] VITALS: BP 131/46
[2017-01-12] VITALS: BP 127/51
[2017-01-12 08:00] VITALS: BP 130/66
[2017-01-12 12:00] VITALS: BP 136/76
[2017-01-12 16:00] VITALS: BP 155/58
[2017-01-12 20:00] VITALS: BP 156/70
[2017-01-13] VITALS: BP 122/53
[2017-01-13 05:56] LABS: HEMATOCRIT 40.1 % (37.0-47.0); HEMOGLOBIN 12.4 g/dl (12.0-16.0); MEAN CELL VOLUME 94.1 fl (81.0-99.0); MEAN CORPUSCULAR HGB 29.1 pg (27.0-31.0); MEAN CORPUSCULAR HGB CONC 30.9 g/dl (33.0-37.0); MEAN PLATELET VOLUME 10.3 fl (9.6-12.3); PLATELET COUNT AUTOMATED 218 10*3/uL (130-400); RED BLOOD COUNT 4.26 10*6/uL (4.10-5.10); RED CELL DISTRI WIDTH 15.3 % (0-14.5); WHITE BLOOD COUNT 11.4 10*3/uL (4.8-10.8)
[2017-01-13 06:07] LABS: EST GLOM FILT AFRICAN AMERICAN > 60 ml/min
[2017-01-13 06:53] LABS: ATYPICAL LYMPHS 1 % (0-0); LYMPHOCYTE # 0.3 10*3/uL (1.3-4.4); NEUTROPHILS 88 % (47-73); PLATELET SUFFICIENCY NORMAL (NORMAL); TOTAL CELLS COUNTED 100 #CELLS
[2017-01-13 07:54] VITALS: BP 148/60; BP 152/60
[2017-01-13 12:00] VITALS: BP 120/58
[2017-01-13 16:00] VITALS: BP 151/61
[2017-01-13 20:00] VITALS: BP 125/50
[2017-01-14] VITALS: BP 120/60
[2017-01-14 06:30] LABS: BASO % 0.3 % (0.0-1.0); EOS # 0.4 10*3/uL (0.0-0.4); EOS % 4.4 % (1.0-4.0); HEMATOCRIT 38.9 % (37.0-47.0); HEMOGLOBIN 12.5 g/dl (12.0-16.0); IG # 0.1 10*3/uL (0.0-0.1); MEAN CELL VOLUME 94.4 fl (81.0-99.0); MEAN CORPUSCULAR HGB 30.3 pg (27.0-31.0); MEAN CORPUSCULAR HGB CONC 32.1 g/dl (33.0-37.0); MEAN PLATELET VOLUME 10.3 fl (9.6-12.3); MONO % 11.3 % (3.0-9.0); NEUT # 6.6 10*3/uL (2.3-7.9); NEUT % 72.3 % (47.0-73.0); PLATELET COUNT AUTOMATED 202 10*3/uL (130-400); RED BLOOD COUNT 4.12 10*6/uL (4.10-5.10); RED CELL DISTRI WIDTH 15.2 % (0-14.5); WHITE BLOOD COUNT 9.1 10*3/uL (4.8-10.8)
[2017-01-14 06:50] LABS: BUN 14 mg/dl (7-24); CARBON DIOXIDE 35 mmol/L (21-32); CHLORIDE 100 mmol/L (98-107); GLUCOSE 116 mg/dL (65-99); POTASSIUM 3.7 mmol/L (3.5-5.1); SODIUM 142 mmol/L (136-145)
[2017-01-14 06:51] LABS: EST GLOM FILT AFRICAN AMERICAN > 60 ml/min
[2017-01-14 08:00] VITALS: BP 122/55
[2017-01-14 12:00] VITALS: BP 142/46
[2017-01-14 16:00] VITALS: BP 120/42
== END 2017-01-14 20:30 | disposition home or self-care (01) | DRG 871 ==
LOC: ED 14:30 → 5E 16:29 → EDHOLD 16:29 → 5E 17:15
PROVIDERS: Internal Medicine; Internal Medicine Critical Care Medicine; Registered Nurse
DX: A41.9 Sepsis, unspecified organism (principal); J96.01 Acute respiratory failure with hypoxia; J69.0 Pneumonitis due to inhalation of food and vomit; L89.312 Pressure ulcer of right buttock, stage 2; I50.43 Acute on chronic combined systolic (congestive) and diastolic (congestive) heart failure; N39.0 Urinary tract infection, site not specified; Z68.42 Body mass index [BMI] 45.0-49.9, adult; E66.01 Morbid (severe) obesity due to excess calories; J44.9 Chronic obstructive pulmonary disease, unspecified; I87.2 Venous insufficiency (chronic) (peripheral); M06.9 Rheumatoid arthritis, unspecified; R59.1 Generalized enlarged lymph nodes; B96.1 Klebsiella pneumoniae [K. pneumoniae] as the cause of diseases classified elsewhere; I11.0 Hypertensive heart disease with heart failure; R62.7 Adult failure to thrive; Z99.81 Dependence on supplemental oxygen; Z80.0 Family history of malignant neoplasm of digestive organs

== ENCOUNTER → 2017-02-12 | Outpatient (CLI) | payer MEDICARE ==
[~2017-02-12] MED LIST changes: +AMLODIPINE BES1 CAP PO; +ECONAZOLE NITRATE11 T; +ENBREL50 MG/1 ML SQ; +RASUVO15 MG/0.3 SC
== END | disposition home or self-care (01) ==
LOC: RAD 13:04
DX: J18.9 Pneumonia, unspecified organism (principal); I10 Essential (primary) hypertension

== ENCOUNTER 2017-03-26 12:22 | Inpatient (IN) | payer MEDICARE ==
[~2017-03-26] VITALS: Ht 161.2 cm; Wt 126.6 kg
--- NOTE | ~2017-03-26 | CON ---
[place], [place] REPORT OF CONSULTATION NAME: [facility] #: [id number] UNIT #: [id number] ROOM: 503 DOCTOR: NISHANT RODRIGUEZ MD BIRTHDATE: [birth year] DOS: 03/28/2017 HISTORY OF PRESENT ILLNESS: This is a 67-year-old -[place] woman with a history of morbid obesity, previously diagnosed diastolic heart failure, essential hypertension. She has never had a heart attack, any known coronary artery disease, stroke, cancer, COPD or kidney problems. She has never smoked cigarettes, does not use alcoholic beverages. She has not put on much weight recently. She has had chronic swelling in the legs and recently, the swelling had gotten worse and she has become somewhat more short of breath as well. She did not have any palpitations, chest heaviness, pressure, orthopnea but the swelling in the leg had gotten worse. HOME MEDICATIONS: Included amlodipine 10 mg daily, carvedilol 25 mg b.i.d., hydrochlorothiazide 25 mg daily, lisinopril 40 mg daily and methotrexate for rheumatoid arthritis. PHYSICAL EXAMINATION: GENERAL: The patient who is morbidly obese. She is alert, oriented. She is not particularly tachypneic. Complexion is fine. There is no thyromegaly or finger clubbing. VITAL SIGNS: Pulse is irregular at 76 beats per minute, blood pressure 100/48. NECK: JVP seems to be increased because of the short neck, it is still difficult to determine. No bruit in the neck. HEART: There is no cardiomegaly. Cardiac auscultation revealed no wheezes or rubs. LUNGS: Breath sounds are moderately diminished with very few adventitious sounds. She did have 3+ edema in the lower extremities, pretibial area for extended period of time and the area is very tender. LABORATORY DATA: Chest x-ray demonstrated mild pulmonary congestion. An echocardiogram was read by Dr. Vallecillo yesterday and demonstrated normal LV systolic function and dilated right ventricle. Creatinine 0.85, BUN is 12, potassium 3.2. IMPRESSION: 1. This patient probably has acute on chronic diastolic heart failure. 2. Hypertension. Blood pressure is rather low. 3. Edema in the lower extremities is substantial and I think this is partly due to heart failure and also from high dose of amlodipine. RECOMMENDATIONS: Discontinue amlodipine altogether since blood pressure is low. I would just monitor it. It may not rise to the extent that we have to add another medication. I would go off hydrochlorothiazide and put this patient on furosemide intravenously inpatient and p.o. as outpatient. Beta bryanna will be continued. [place], [place] REPORT OF CONSULTATION NAME: [facility] UNIT #: [id number] ROOM: [facility] DOCTOR: JENNIFER COX,NISHANT BIRTHDATE: [birth year] I thank you on behalf of Dr. Vallecillo for this consult. NISHANT RODRIGUEZ MD CM:CONSTR:REPORT OF CONSULTATION 0730 03/28/17 1447 interface
--- NOTE | ~2017-03-26 | DS ---
[place], [place] DISCHARGE SUMMARY NAME: [facility] #: [id number] UNIT #: [id number] ROOM: 503 DOCTOR: CLAYTON GARCIA MD BIRTHDATE: [birth year] DOS: 03/28/2017 DIAGNOSES: 1. Acute diastolic congestive heart failure. 2. Cellulitis of the left lower leg. 3. Benign hypertension with concentric left ventricular hypertrophy. 5. Morbid obesity with chronic respiratory failure. 6. Chronic obstructive pulmonary disease. 7. Chronic stasis dermatitis. 8. Hypokalemia. DISCHARGE MEDICATIONS: Lasix 40 daily, KCl 10 daily, nystatin for local application twice a day, Ceftin 250 twice daily for 5 days, lisinopril 40 daily, Coreg 25 b.i.d. and methotrexate as prescribed by mold finisher. DISCONTINUED MEDICATIONS: Hydrochlorothiazide and amlodipine. HOSPITAL COURSE: The patient is 67 years old, comes in with complaints of increased leg edema and shortness of breath. Please refer to H and P for details. The patient was admitted with CHF and cellulitis, was placed on antibiotics and IV diuretics. The patient also has multiple excoriated lesions with tinea infection in the intertriginous areas, which has been treated the nystatin. The patient is doing much better. Chest x-ray continues to show mild CHF, but clinically the patient has improved. She is hypokalemic. Supplementation will be ordered today. Dr. Caldwell did see the patient. Echocardiogram showed LVH and diastolic dysfunction. The patient is overall stable and improved. The plan is to discharge her to home. DISCHARGE MEDICATIONS: As above. Follow up with PCP. CLAYTON GARCIA MD CM:DISCHARG [id number] [id number] CLAYTON GARCIA MD 03/28/17 1117 interface
--- NOTE | ~2017-03-26 | WRIGHTHP ---
[place], [place] PATIENT HISTORY AND PHYSICAL EXAM NAME: [facility] #: [id number] UNIT #: [id number] ROOM: 503 DOCTOR: CLAYTON GARCIA MD BIRTHDATE: [birth year] DOS: 03/26/2017 HISTORY OF PRESENT ILLNESS: The patient is 67 years old. The patient comes in with complaints of increasing swelling in her lower legs and leg edema. She has had these symptoms for the last 3-4 days. She also has lesions in the intertriginous areas and behind her knee folds in the popliteal area as well as in the groin area. She denies having any chest pains or palpitations. Does not have any fever or chills. Does not have any abdominal pain, nausea, any emesis. PAST MEDICAL HISTORY: Significant for admission in January 2017 for, 1. Multifocal pneumonia with diastolic CHF. 2. Morbid obesity. 3. Chronic respiratory failure. 4. COPD, oxygen dependent. 5. Stasis dermatitis. MEDICATIONS: That the patient is on amlodipine 10 daily, Coreg 25 b.i.d., hydrochlorothiazide 25 daily, lisinopril 40 daily, methotrexate once a week. SOCIAL HISTORY: Nonsmoker, does not use any alcohol. PHYSICAL EXAMINATION: GENERAL: She is awake, alert and oriented. VITAL SIGNS: Blood pressure is 121/74, pulse of 62, respirations 20, temperature 98.3. LUNGS: Clear. HEART: Regular. ABDOMEN: Obese, soft. EXTREMITIES: Trace edema bilaterally with redness, more pronounced in the left lower leg than on the right, multiple excoriated lesions noticed in the intertriginous areas with tinea, mostly on the groin area as well as behind the popliteal area, both legs. On the left side, the popliteal area that area looks quite red with some evidence of minimal cellulitis. Chest x-ray shows mild CHF. ASSESSMENT AND PLAN: 1. Acute diastolic congestive heart failure, patient is placed on IV diuretics. Continue home medications. Echocardiogram was just done 6 months ago, so we do not need to repeat that. 2. Cellulitis of the lower legs. IV antibiotics have been ordered. 3. Intertriginous tinea of the intertriginous areas. Nystatin cream will be ordered. Wound care has been consulted. 4. Benign hypertension, controlled. [place], [place] PATIENT HISTORY AND PHYSICAL EXAM [id number] UNIT #: [id number] ROOM: 503 DOCTOR: CLAYTON GARCIA MD BIRTHDATE: [birth year] CLAYTON GARCIA MD CM:HISPHYS:PATIENT HISTORY AND PHYSICAL EXAMINATION 1349 1607 CLAYTON GARCIA MD 03/27/17 1606 interface
--- NOTE | ~2017-03-26 | PR ---
[place], [place] PROGRESS NOTE NAME: [facility] #: [id number] UNIT #: [id number] ROOM: 503 DOCTOR: CLAYTON GARCIA MD BIRTHDATE: [birth year] DOS: SUBJECTIVE: The patient is not having any complaints today. Of note is that the ____ noticed that she had a small clot in her urine yesterday, but the patient has not had any active bleeding. OBJECTIVE: VITAL SIGNS: Graphic trend shows pressure 120/40, pulse of 59, respirations 20, temperature 97.9. LUNGS: Diminished breath sounds, clear. HEART: Regular. ABDOMEN: Obese. EXTREMITIES: Decreasing edema. The wound infections are much improved. LABORATORY DATA: Show BMP: Glucose 99, BUN 12, creatinine 0.85, sodium 138, potassium 3.2, chloride 98, bicarbonate 39. Urine culture shows no bacterial growth. Echocardiogram showed normal LV function, right ventricular dilatation and evidence of diastolic dysfunction with mild concentric LVH. ASSESSMENT AND PLAN: 1. Acute diastolic congestive heart failure. Repeat chest x-ray will be ordered to assure there is clearing of the congestive heart failure. 2. Clinically, the patient is much improved. I will continue patient on diuretics. 3. Benign hypertension with concentric left ventricular hypertrophy. Blood pressures are fairly under control. It is possible the amlodipine may be causing some of the problems with leg swelling and redness, so this could be discontinued. 4. Hypokalemia. Supplementation will be ordered. 5. History of rheumatoid arthritis. The patient does take disease modifying agents. 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 CLAYTON GARCIA MD CM:PNTRANS [id number] CLAYTON GARCIA MD 03/28/17 2248 interface
[2017-03-26] MEDS ORDERED: HYDR25T PO (12:55)
[2017-03-26] MEDS ORDERED: AMLODIPINE BESY1 TAB PO (12:56)
[2017-03-26 12:58] VITALS: BP 145/72
[2017-03-26 13:53] LABS: BASO % 0.1 % (0.0-1.0); EOS # 0.4 10*3/uL (0.0-0.4); EOS % 4.5 % (1.0-4.0); HEMATOCRIT 37.8 % (37.0-47.0); HEMOGLOBIN 12.2 g/dl (12.0-16.0); IG # 0.2 10*3/uL (0.0-0.1); LYMPH # 0.7 10*3/uL (1.3-4.4); LYMPH % 8.7 % (27.0-41.0); MEAN CELL VOLUME 93.1 fl (81.0-99.0); MEAN CORPUSCULAR HGB CONC 32.3 g/dl (33.0-37.0); MEAN PLATELET VOLUME 9.6 fl (9.6-12.3); MONO # 0.7 10*3/uL (0.1-1.0); MONO % 7.9 % (3.0-9.0); NEUT # 6.4 10*3/uL (2.3-7.9); NEUT % 76.2 % (47.0-73.0); PLATELET COUNT AUTOMATED 154 10*3/uL (130-400); RED BLOOD COUNT 4.06 10*6/uL (4.10-5.10); RED CELL DISTRI WIDTH 20.2 % (0-14.5); WHITE BLOOD COUNT 8.4 10*3/uL (4.8-10.8)
[2017-03-26 14:10] LABS: ALBUMIN 2.8 gm/dl (3.1-4.5); ALKALINE PHOSPHATASE 88 U/L (45-117); BILIRUBIN, TOTAL 0.7 mg/dl (0.2-1.0); BUN 9 mg/dl (7-24); CARBON DIOXIDE 27 mmol/L (21-32); CHLORIDE 103 mmol/L (98-107); EST GLOM FILT AFRICAN AMERICAN > 60 ml/min; GLUCOSE 132 mg/dL (65-99); POTASSIUM 3.6 mmol/L (3.5-5.1); SGOT/AST 27 IU/L (3-35); SGPT/ALT 23 U/L (12-78); SODIUM 140 mmol/L (136-145); TOTAL PROTEIN 7.4 gm/dL (6.4-8.2)
[2017-03-26 14:12] LABS: TROPONIN I < 0.015 ng/ml (<0.045)
[2017-03-26 15:43] LABS: BILIRUBIN NEGATIVE (NEGATIVE); BLOOD 2+ (NEGATIVE); CLARITY SL CLOUDY (CLEAR); COLOR YELLOW (YELLOW); GLUCOSE NEGATIVE (NEGATIVE); KETONE NEGATIVE (NEGATIVE); LEUKO ESTERASE NEGATIVE (NEGATIVE); NITRITE NEGATIVE (NEGATIVE); PH 5.5 (5.0-9.0); PROTEIN NEGATIVE (NEGATIVE); UROBILINOGEN 0.2 E.U./dl (0.2-1.0)
[2017-03-26 15:59] LABS: BACTERIA TRACE; EPITHELIAL CELLS 20-25; URINE REFLEX COMMENT YES (NO); WBC 0-2 wbc/hpf (0-5)
[2017-03-26 18:30] VITALS: BP 127/67
[2017-03-26] MEDS ORDERED: RASUVO25 MG/0.5 SC (19:00)
[2017-03-26 19:15] VITALS: BP 122/47
[2017-03-26 20:11] VITALS: BP 111/47
[2017-03-27] VITALS: BP 124/50
[2017-03-27 06:07] LABS: BASO % 0.1 % (0.0-1.0); EOS # 0.2 10*3/uL (0.0-0.4); HEMATOCRIT 37.1 % (37.0-47.0); HEMOGLOBIN 11.9 g/dl (12.0-16.0); IG # 0.1 10*3/uL (0.0-0.1); LYMPH # 0.8 10*3/uL (1.3-4.4); LYMPH % 10.1 % (27.0-41.0); MEAN CELL VOLUME 92.5 fl (81.0-99.0); MEAN CORPUSCULAR HGB 29.7 pg (27.0-31.0); MEAN CORPUSCULAR HGB CONC 32.1 g/dl (33.0-37.0); MEAN PLATELET VOLUME 10.6 fl (9.6-12.3); MONO # 0.5 10*3/uL (0.1-1.0); MONO % 6.5 % (3.0-9.0); NEUT % 79.8 % (47.0-73.0); NUCLEATED RED BLOOD CELL 0.3 % (0.0-0.0); PLATELET COUNT AUTOMATED 173 10*3/uL (130-400); RED BLOOD COUNT 4.01 10*6/uL (4.10-5.10); RED CELL DISTRI WIDTH 20.2 % (0-14.5); WHITE BLOOD COUNT 7.5 10*3/uL (4.8-10.8)
[2017-03-27 06:21] LABS: BUN 10 mg/dl (7-24); C-REACTIVE PROTEIN 7.32 MG/DL (0-0.3); CARBON DIOXIDE 28 mmol/L (21-32); CHLORIDE 101 mmol/L (98-107); EST GLOM FILT AFRICAN AMERICAN > 60 ml/min; GLUCOSE 106 mg/dL (65-99); POTASSIUM 3.4 mmol/L (3.5-5.1); SODIUM 137 mmol/L (136-145)
[2017-03-27 08:38] VITALS: BP 121/74
[2017-03-27 12:00] VITALS: BP 110/50
[2017-03-27 16:12] VITALS: BP 121/41
[2017-03-27 20:00] VITALS: BP 107/47
[2017-03-28] VITALS: BP 100/48; BP 91/28
[2017-03-28 06:30] LABS: BUN 12 mg/dl (7-24); CARBON DIOXIDE 29 mmol/L (21-32); CHLORIDE 98 mmol/L (98-107); EST GLOM FILT AFRICAN AMERICAN > 60 ml/min; GLUCOSE 99 mg/dL (65-99); POTASSIUM 3.2 mmol/L (3.5-5.1); SODIUM 138 mmol/L (136-145)
[2017-03-28 08:00] VITALS: BP 120/40
[2017-03-28] MEDS ORDERED: CEFUROXIME AXE250 MG PO (09:13)
[2017-03-28] MEDS ORDERED: NYSTOP100000 U/G T (09:13)
[2017-03-28] MEDS ORDERED: K-TAB10 MEQ PO ×2 (09:16)
[2017-03-28] MEDS ORDERED: LASIX40 MG PO ×2 (09:16)
== END 2017-03-28 11:31 | disposition home or self-care (01) | DRG 602 ==
LOC: ED 12:22 → EDHOLD 16:32 → 5E 16:32
PROVIDERS: Internal Medicine; Registered Nurse
DX: L03.116 Cellulitis of left lower limb (principal); I50.33 Acute on chronic diastolic (congestive) heart failure; J96.10 Chronic respiratory failure, unspecified whether with hypoxia or hypercapnia; Z99.81 Dependence on supplemental oxygen; Z68.42 Body mass index [BMI] 45.0-49.9, adult; I11.0 Hypertensive heart disease with heart failure; E66.01 Morbid (severe) obesity due to excess calories; J44.9 Chronic obstructive pulmonary disease, unspecified; E87.6 Hypokalemia; I87.2 Venous insufficiency (chronic) (peripheral); M06.9 Rheumatoid arthritis, unspecified

== ENCOUNTER 2017-03-28 16:52 | Inpatient (IN) | payer MEDICARE ==
[~2017-03-28] VITALS: Ht 160 cm; Wt 120.8 kg
--- NOTE | ~2017-03-28 | PR ---
[place], [place] PROGRESS NOTE [id number] UN[facility] #: [id number] ROOM: 409 DOCTOR: CLAYTON GARCIA MD BIRTHDATE: [birth year] DOS: 03/31/2017 SUBJECTIVE: The patient is doing fine without any complaints. Denies any chest pains, palpitations or shortness of breath. PHYSICAL EXAMINATION: GENERAL: The patient is awake and alert and oriented. VITAL SIGNS: Graphic trend shows pressure 126/54, pulse 55, respirations 20, temperature 97.6. LUNGS: Clear. HEART: Regular. ABDOMEN: Obese, soft. EXTREMITIES: Without any edema. ASSESSMENT AND PLAN: 1. The patient admitted recently with cellulitis. I do not see any evidence of cellulitis. One of the blood cultures drawn on admission came back positive. The other one was negative. This most likely is a contaminant. Blood cultures were repeated again and both of those blood cultures preliminary shows no bacterial growth. If cleared by ID, the patient can be discharged today. 2. Recent acute diastolic dysfunction with congestive heart failure, which is resolved, both clinically as well as radiologically. Continue home medications. CLAYTON GARCIA MD CM:PNTRANS [id number] CLAYTON GARCIA MD 03/31/17 1635 interface
--- NOTE | ~2017-03-28 | PR ---
[place], [place] PROGRESS NOTE [id number] #: [id number] ROOM: 409 DOCTOR: CELINA AVALOS MD BIRTHDATE: [birth year] DOS: 03/30/2017 SUBJECTIVE: The patient complaining of some arthritic pains. Otherwise, feeling well. OBJECTIVE: VITAL SIGNS: Blood pressure 129/46, heart rate 54 beats per minute, breathing 20 times per minute, temperature 98 degrees Fahrenheit. GENERAL APPEARANCE: The patient is alert and oriented x 3, in no visible distress. HEENT AND NECK: Exam within normal limits. CARDIOVASCULAR SYSTEM: Heart rate is regular in rate and rhythm. S1 and S2 normally audible. LUNGS: Clear to auscultation. ABDOMEN: Soft, nontender. No obvious organomegaly. Bowel sounds are present. EXTREMITIES: Without significant cyanosis or edema. IMPRESSION: 1. The patient with resolving cellulitis involving the skin of the left leg. 2. Positive blood cultures for Gram-positive cocci in clusters, 1 out of 2 bottles and now repeat cultures are negative so far. Apparently, the first culture was inappropriate skin prep and skin contamination. Infectious disease specialist, Dr. Carver is following. 3. Rheumatoid arthritis. Methotrexate held back because of her positive blood cultures. The patient has some arthritic pains for which I am starting her on Tylenol. 4. Mild protein calorie malnutrition, albumin level of 2.9. 5. Chronic diastolic type compensated congestive heart failure with concentric left ventricular hypertrophy. 6. Obesity. The patient working with dietary. CELINA AVALOS MD CM:PNTRANS [id number] CELINA AVALOS MD 03/30/172204 interface
--- NOTE | ~2017-03-28 | WRIGHTHP ---
[place], [place] PATIENT HISTORY AND PHYSICAL EXAM NAME: [facility] #: [id number] UNIT #: [id number] ROOM: 409 DOCTOR: CELINA AVALOS MD BIRTHDATE: [birth year] DOS: 03/28/2017 HISTORY OF PRESENT ILLNESS: The patient is a 67-year-old female with a past medical history of: 1. Recent cellulitis involving left leg. 2. Chronic stasis dermatitis, both legs. 3. Chronic diastolic type CHF. 4. Benign essential hypertension and concentric LVH on echocardiogram, morbid obesity with chronic respiratory failure, COPD. The patient takes methotrexate for possible rheumatoid arthritis. The patient was recently treated and discharged from [facility] yesterday. One blood culture came back, 1 out of 2 bottles for gram-positive cocci in clusters. The patient was called back in for admission and she is feeling well. The cellulitis in her left leg, which she was being treated for with antibiotics, is improving. There are no complaints of any chest pain, shortness of breath. No other GI or urinary symptoms. REVIEW OF SYSTEMS: GASTROINTESTINAL: No nausea, vomiting, diarrhea, constipation. CARDIOVASCULAR: No chest pains or palpitations. LUNGS: No increasing shortness of breath or wheezing. FAMILY HISTORY: Noncontributory. SOCIAL HISTORY: Denies smoking cigarettes, alcohol or any drug abuse. HOME MEDICATIONS: The patient takes potassium, lisinopril, furosemide, Coreg, fluconazole, miconazole, Coreg, ____. ALLERGIES: No known drug allergies. PHYSICAL EXAMINATION: GENERAL: Alert and oriented x3, morbidly obese. HEENT AND NECK: Extraocular movements are intact. Sclerae are anicteric. Oral mucosa is moist and clean. No obvious facial weakness. Neck is supple without any lymphadenopathy. No thyromegaly. No JVD. No carotid arterial bruits. LUNGS: Clear to auscultation. No wheezing. No rhonchi. CARDIOVASCULAR SYSTEM: Heart rate is regular in rate and rhythm. S1 and S2 normally audible. No significant murmur or any other abnormal cardiac sounds. ABDOMEN: Soft, nontender. No obvious organomegaly. Bowel sounds are present. No obvious herniation. EXTREMITIES: Without significant cyanosis or edema. Warm to touch. Resolving cellulitis in her left leg. CENTRAL NERVOUS SYSTEM: Alert and oriented x3. Cranial nerves II-XII are intact. Speech is normal. The patient is able to move all extremities. Normal muscle strength. Deep tendon reflexes are equal on both sides. Plantars were downgoing. IMPRESSION AND PLAN: 1. The patient with resolving cellulitis in her left leg, treated with [place], [place] PATIENT HISTORY AND PHYSICAL EXAM [id number] #: [id number] ROOM: 409 DOCTOR: CELINA AVALOS MD BIRTHDATE: [birth year] antibiotics and improving. 2. Positive blood cultures for gram-positive cocci in clusters, quite likely to be a contaminant, but as a precaution the patient has been admitted to [facility] and started on IV vancomycin. Infectious disease specialist, Dr. Carver, is following her until her repeat blood cultures come back. 3. Mild protein calorie malnutrition with albumin level of 2.9. 4. Benign essential hypertension being treated and controlled. 5. Centrilobular emphysema with chronic shortness breath, stable at this time. 6. Rheumatoid arthritis for which the patient takes methotrexate, which has been stopped because of her recent infection, will be continued later. 7. Chronic diastolic type compensated CHF with concentric left ventricular hypertrophy. CELINA AVALOS MD CM:HISPHYS:PATIENT HISTORY AND PHYSICAL EXAMINATION [id number] CELINA AVALOS MD 03/29/17 1619 interface
[~2017-03-28 16:52] MED LIST changes: +AMLODIPINE BESY1 TAB PO; +CEFUROXIME AXE250 MG PO; +K-TAB10 MEQ PO; +LASIX40 MG PO; +NYSTOP100000 U/G T; +RASUVO25 MG/0.5 SC
[2017-03-28 17:22] VITALS: BP 103/48
[2017-03-28 18:38] LABS: BASO % 0.3 % (0.0-1.0); EOS # 0.4 10*3/uL (0.0-0.4); EOS % 5.5 % (1.0-4.0); HEMATOCRIT 39.9 % (37.0-47.0); HEMOGLOBIN 12.7 g/dl (12.0-16.0); IG # 0.1 10*3/uL (0.0-0.1); LYMPH # 0.8 10*3/uL (1.3-4.4); LYMPH % 10.4 % (27.0-41.0); MEAN CELL VOLUME 93.2 fl (81.0-99.0); MEAN CORPUSCULAR HGB 29.7 pg (27.0-31.0); MEAN CORPUSCULAR HGB CONC 31.8 g/dl (33.0-37.0); MONO # 0.9 10*3/uL (0.1-1.0); MONO % 11.9 % (3.0-9.0); NEUT # 5.4 10*3/uL (2.3-7.9); NEUT % 70.1 % (47.0-73.0); PLATELET COUNT AUTOMATED 186 10*3/uL (130-400); RED BLOOD COUNT 4.28 10*6/uL (4.10-5.10); RED CELL DISTRI WIDTH 20.6 % (0-14.5); WHITE BLOOD COUNT 7.8 10*3/uL (4.8-10.8)
[2017-03-28 18:53] LABS: ALBUMIN 2.9 gm/dl (3.1-4.5); ALKALINE PHOSPHATASE 87 U/L (45-117); BILIRUBIN, TOTAL 0.6 mg/dl (0.2-1.0); BUN 13 mg/dl (7-24); C-REACTIVE PROTEIN 8.16 MG/DL (0-0.3); CARBON DIOXIDE 29 mmol/L (21-32); CHLORIDE 100 mmol/L (98-107); EST GLOM FILT AFRICAN AMERICAN > 60 ml/min; GLUCOSE 135 mg/dL (65-99); MAGNESIUM 2.1 mg/dL (1.5-2.1); POTASSIUM 4.1 mmol/L (3.5-5.1); SGOT/AST 22 IU/L (3-35); SGPT/ALT 20 U/L (12-78); SODIUM 139 mmol/L (136-145); TOTAL PROTEIN 7.6 gm/dL (6.4-8.2)
[2017-03-29] VITALS: BP 150/61
[2017-03-29 08:00] VITALS: BP 114/49
[2017-03-29 12:00] VITALS: BP 121/57
[2017-03-29 16:00] VITALS: BP 103/48
[2017-03-29 20:00] VITALS: BP 153/55
[2017-03-30] VITALS: BP 134/48
[2017-03-30 08:00] VITALS: BP 133/59
[2017-03-30 12:00] VITALS: BP 129/46
[2017-03-30 16:00] VITALS: BP 145/56
[2017-03-30 20:00] VITALS: BP 114/50
[2017-03-31] VITALS: BP 126/54
[2017-03-31 08:00] VITALS: BP 146/60
[2017-03-31 12:00] VITALS: BP 118/65
[2017-03-31] MEDS ORDERED: LOTRIMIN TP (14:36)
== END 2017-03-31 15:11 | disposition home or self-care (01) | DRG 603 ==
LOC: ED 16:52 → 4E 18:05 → EDHOLD 18:05 → 4E 18:52
PROVIDERS: Emergency Medicine
DX: L03.116 Cellulitis of left lower limb (principal); J96.10 Chronic respiratory failure, unspecified whether with hypoxia or hypercapnia; B37.89 Other sites of candidiasis; E44.1 Mild protein-calorie malnutrition; I50.32 Chronic diastolic (congestive) heart failure; Z68.42 Body mass index [BMI] 45.0-49.9, adult; L03.115 Cellulitis of right lower limb; I11.0 Hypertensive heart disease with heart failure; E66.01 Morbid (severe) obesity due to excess calories; I87.2 Venous insufficiency (chronic) (peripheral); J43.2 Centrilobular emphysema; M06.9 Rheumatoid arthritis, unspecified; Z87.01 Personal history of pneumonia (recurrent); Z87.440 Personal history of urinary (tract) infections; Z86.19 Personal history of other infectious and parasitic diseases

== ENCOUNTER → 2017-08-29 | Outpatient (CLI) | payer MEDICARE ==
[~2017-08-29] MED LIST changes: +LOTRIMIN TP
[2017-08-29 12:41] LABS: ALBUMIN 3.1 gm/dl (3.1-4.5); ALKALINE PHOSPHATASE 104 U/L (45-117); BUN 11 mg/dl (7-24); CHLORIDE 102 mmol/L (98-107); HDL CHOLESTEROL 36 mg/dl (40-60); POTASSIUM 4.4 mmol/L (3.5-5.1); SGPT/ALT 26 U/L (12-78); SODIUM 136 mmol/L (136-145); TOTAL PROTEIN 7.8 gm/dL (6.4-8.2); TRIGLYCERIDES 93 mg/dl (<150); VLDL CHOLESTEROL 19 mg/dL (6-40)
[2017-08-29 12:42] LABS: BASO % 0.1 % (0.0-1.0); EOS # 0.3 10*3/uL (0.0-0.4); EOS % 4.7 % (1.0-4.0); HEMATOCRIT 44.2 % (37.0-47.0); HEMOGLOBIN 14.1 g/dl (12.0-16.0); LYMPH # 0.6 10*3/uL (1.3-4.4); MEAN CELL VOLUME 94.6 fl (81.0-99.0); MEAN CORPUSCULAR HGB 30.2 pg (27.0-31.0); MEAN CORPUSCULAR HGB CONC 31.9 g/dl (33.0-37.0); MEAN PLATELET VOLUME 10.5 fl (9.6-12.3); MONO # 0.2 10*3/uL (0.1-1.0); MONO % 2.6 % (3.0-9.0); NEUT # 5.9 10*3/uL (2.3-7.9); NEUT % 84.3 % (47.0-73.0); PLATELET COUNT AUTOMATED 180 10*3/uL (130-400); RED BLOOD COUNT 4.67 10*6/uL (4.10-5.10); RED CELL DISTRI WIDTH 16.5 % (0-14.5)
[2017-08-29 12:49] LABS: CHOLESTEROL 160 mg/dL (<200); LDL CHOLESTEROL 105 mg/dL (9-159); SGOT/AST 33 IU/L (3-35)
[2017-08-29 12:55] LABS: CREATININE 0.82 mg/dL (0.55-1.02)
[2017-08-30 09:08] LABS: RHEUMATOID ARTHRITIS FACTOR 14.2 IU/mL (0.0-13.9)
== END | disposition home or self-care (01) ==
LOC: LAB 11:36
PROVIDERS: Specialist
DX: M05.79 Rheumatoid arthritis with rheumatoid factor of multiple sites without organ or systems involvement (principal); E78.00 Pure hypercholesterolemia, unspecified; E55.9 Vitamin D deficiency, unspecified; D69.6 Thrombocytopenia, unspecified

== ENCOUNTER → 2017-12-17 | Outpatient (CLI) | payer MEDICARE ==
[2017-12-17 12:30] LABS: BASO % 0.2 % (0.0-1.0); EOS # 0.3 10*3/uL (0.0-0.4); EOS % 2.6 % (1.0-4.0); HEMATOCRIT 47.7 % (37.0-47.0); HEMOGLOBIN 14.8 g/dl (12.0-16.0); LYMPH # 0.9 10*3/uL (1.3-4.4); LYMPH % 8.8 % (27.0-41.0); MEAN CELL VOLUME 92.4 fl (81.0-99.0); MEAN CORPUSCULAR HGB 28.7 pg (27.0-31.0); MEAN PLATELET VOLUME 10.3 fl (9.6-12.3); MONO # 0.4 10*3/uL (0.1-1.0); MONO % 4.2 % (3.0-9.0); NEUT # 8.3 10*3/uL (2.3-7.9); NEUT % 83.6 % (47.0-73.0); PLATELET COUNT AUTOMATED 144 10*3/uL (130-400); RED BLOOD COUNT 5.16 10*6/uL (4.10-5.10)
[2017-12-17 12:50] LABS: CREATININE 0.88 mg/dL (0.55-1.02); SGOT/AST 14 IU/L (3-35); SGPT/ALT 14 U/L (12-78)
== END | disposition home or self-care (01) ==
LOC: LAB 11:42
PROVIDERS: Specialist
DX: M05.79 Rheumatoid arthritis with rheumatoid factor of multiple sites without organ or systems involvement (principal); E55.9 Vitamin D deficiency, unspecified

== ENCOUNTER → 2018-03-13 | Outpatient (CLI) | payer MEDICARE ==
[2018-03-13 10:23] LABS: BASO % 0.2 % (0.0-1.0); EOS # 0.4 10*3/uL (0.0-0.4); EOS % 3.8 % (1.0-4.0); HEMATOCRIT 48.4 % (37.0-47.0); HEMOGLOBIN 15.2 g/dl (12.0-16.0); LYMPH # 0.7 10*3/uL (1.3-4.4); LYMPH % 7.5 % (27.0-41.0); MEAN CELL VOLUME 93.1 fl (81.0-99.0); MEAN CORPUSCULAR HGB 29.2 pg (27.0-31.0); MEAN CORPUSCULAR HGB CONC 31.4 g/dl (33.0-37.0); MEAN PLATELET VOLUME 10.3 fl (9.6-12.3); MONO # 0.4 10*3/uL (0.1-1.0); MONO % 3.8 % (3.0-9.0); NEUT # 8.2 10*3/uL (2.3-7.9); NEUT % 84.3 % (47.0-73.0); PLATELET COUNT AUTOMATED 167 10*3/uL (130-400); RED CELL DISTRI WIDTH 15.1 % (0-14.5); WHITE BLOOD COUNT 9.7 10*3/uL (4.8-10.8)
[2018-03-13 10:29] LABS: CREATININE 0.98 mg/dL (0.55-1.02); SGOT/AST 13 IU/L (3-35); SGPT/ALT 11 U/L (12-78)
== END | disposition home or self-care (01) ==
LOC: LAB 09:44
PROVIDERS: Specialist
DX: M05.79 Rheumatoid arthritis with rheumatoid factor of multiple sites without organ or systems involvement (principal); E55.9 Vitamin D deficiency, unspecified

== ENCOUNTER → 2018-06-11 | Outpatient (CLI) | payer MEDICARE | END | disposition home or self-care (01) | LOC: RAD 12:32 | DX: M05.79 Rheumatoid arthritis with rheumatoid factor of multiple sites without organ or systems involvement (principal); R06.02 Shortness of breath; J44.9 Chronic obstructive pulmonary disease, unspecified; I10 Essential (primary) hypertension ==

== ENCOUNTER → 2019-03-25 | Outpatient (CLI) | payer MEDICARE ==
[2019-03-25 14:23] LABS: BASO % 0.4 % (0.0-1.0); EOS # 0.4 10*3/uL (0.0-0.4); EOS % 4.5 % (1.0-4.0); HEMATOCRIT 51.2 % (37.0-47.0); HEMOGLOBIN 15.7 g/dl (12.0-16.0); LYMPH # 0.8 10*3/uL (1.3-4.4); LYMPH % 10.1 % (27.0-41.0); MEAN CELL VOLUME 97.7 fl (81.0-99.0); MEAN CORPUSCULAR HGB CONC 30.7 g/dl (33.0-37.0); MEAN PLATELET VOLUME 10.6 fl (9.6-12.3); MONO # 0.5 10*3/uL (0.1-1.0); MONO % 6.1 % (3.0-9.0); NEUT # 6.4 10*3/uL (2.3-7.9); NEUT % 78.5 % (47.0-73.0); PLATELET COUNT AUTOMATED 174 10*3/uL (130-400); RED BLOOD COUNT 5.24 10*6/uL (4.10-5.10); WHITE BLOOD COUNT 8.1 10*3/uL (4.8-10.8)
[2019-03-25 14:43] LABS: BUN 8 mg/dl (7-24); CREATININE 0.85 mg/dL (0.55-1.02); SGOT/AST 20 IU/L (3-35); SGPT/ALT 9 U/L (12-78)
== END | disposition home or self-care (01) ==
LOC: LAB 13:37
PROVIDERS: Specialist
DX: M05.79 Rheumatoid arthritis with rheumatoid factor of multiple sites without organ or systems involvement (principal)

== ENCOUNTER → 2019-10-08 | Outpatient (CLI) | payer MEDICARE ==
[2019-10-08 12:04] LABS: HEMATOCRIT 50.9 % (37.0-47.0); HEMOGLOBIN 15.8 g/dl (12.0-16.0); MEAN CELL VOLUME 95.1 fl (81.0-99.0); MEAN CORPUSCULAR HGB 29.5 pg (27.0-31.0); MEAN PLATELET VOLUME 10.3 fl (9.6-12.3); RED BLOOD COUNT 5.35 10*6/uL (4.10-5.10); RED CELL DISTRI WIDTH 13.8 % (0-14.5); WHITE BLOOD COUNT 7.2 10*3/uL (4.8-10.8)
[2019-10-08 12:35] LABS: ALBUMIN 3.5 gm/dl (3.1-4.5); ALKALINE PHOSPHATASE 100 U/L (45-117); BUN 11 mg/dl (7-24); CHLORIDE 104 mmol/L (98-107); CHOLESTEROL 199 mg/dL (<200); CREATININE 0.84 mg/dL (0.55-1.02); HDL CHOLESTEROL 43 mg/dl (40-60); LDL CHOLESTEROL 140 mg/dL (9-159); POTASSIUM 4.3 mmol/L (3.5-5.1); SGOT/AST 19 IU/L (3-35); SGPT/ALT 21 U/L (12-78); SODIUM 137 mmol/L (136-145); TOTAL PROTEIN 8.2 gm/dL (6.4-8.2); TRIGLYCERIDES 81 mg/dl (<150); VLDL CHOLESTEROL 16 mg/dL (6-40)
== END | disposition home or self-care (01) ==
LOC: LAB 11:35
PROVIDERS: Family Medicine
DX: E78.00 Pure hypercholesterolemia, unspecified (principal); E55.9 Vitamin D deficiency, unspecified; J44.9 Chronic obstructive pulmonary disease, unspecified; I10 Essential (primary) hypertension; R53.83 Other fatigue; M05.79 Rheumatoid arthritis with rheumatoid factor of multiple sites without organ or systems involvement

== ENCOUNTER → 2020-05-17 | Outpatient (CLI) | payer MEDICARE ==
[2020-05-17 16:02] LABS: BASO % 0.5 % (0.0-1.0); EOS # 0.3 10*3/uL (0.0-0.4); EOS % 3.3 % (1.0-4.0); HEMATOCRIT 55.5 % (37.0-47.0); LYMPH # 0.7 10*3/uL (1.3-4.4); LYMPH % 8.2 % (27.0-41.0); MEAN CELL VOLUME 94.9 fl (81.0-99.0); MEAN CORPUSCULAR HGB 29.2 pg (27.0-31.0); MEAN CORPUSCULAR HGB CONC 30.8 g/dl (33.0-37.0); MEAN PLATELET VOLUME 10.4 fl (9.6-12.3); MONO # 0.6 10*3/uL (0.1-1.0); MONO % 6.9 % (3.0-9.0); NEUT # 7.2 10*3/uL (2.3-7.9); NEUT % 80.5 % (47.0-73.0); PLATELET COUNT AUTOMATED 170 10*3/uL (130-400); RED BLOOD COUNT 5.85 10*6/uL (4.10-5.10); RED CELL DISTRI WIDTH 16.2 % (0-14.5); WHITE BLOOD COUNT 8.9 10*3/uL (4.8-10.8)
[2020-05-17 16:30] LABS: BUN 8 mg/dl (7-24); CREATININE 0.88 mg/dL (0.55-1.02); SGOT/AST 13 IU/L (3-35); SGPT/ALT 15 U/L (12-78)
== END | disposition home or self-care (01) ==
LOC: LAB 14:58
PROVIDERS: Specialist
DX: E55.9 Vitamin D deficiency, unspecified (principal); M05.79 Rheumatoid arthritis with rheumatoid factor of multiple sites without organ or systems involvement

== ENCOUNTER → 2020-06-16 | Outpatient (CLI) | payer MEDICARE ==
[2020-06-16 15:13] LABS: BASO % 0.4 % (0.0-1.0); EOS # 0.3 10*3/uL (0.0-0.4); EOS % 3.4 % (1.0-4.0); HEMATOCRIT 52.7 % (37.0-47.0); LYMPH % 12.7 % (27.0-41.0); MEAN CORPUSCULAR HGB 28.1 pg (27.0-31.0); MEAN CORPUSCULAR HGB CONC 30.6 g/dl (33.0-37.0); MEAN PLATELET VOLUME 10.6 fl (9.6-12.3); MONO # 0.5 10*3/uL (0.1-1.0); NEUT # 5.9 10*3/uL (2.3-7.9); NEUT % 76.1 % (47.0-73.0); PLATELET COUNT AUTOMATED 165 10*3/uL (130-400); RED BLOOD COUNT 5.73 10*6/uL (4.10-5.10); RED CELL DISTRI WIDTH 14.1 % (0-14.5); WHITE BLOOD COUNT 7.7 10*3/uL (4.8-10.8)
[2020-06-16 15:26] LABS: BUN 11 mg/dl (7-24); CREATININE 0.92 mg/dL (0.55-1.02); SGOT/AST 12 IU/L (3-35); SGPT/ALT 12 U/L (12-78)
== END | disposition home or self-care (01) ==
LOC: LAB 14:26
PROVIDERS: ATTEND Specialist
DX: M05.79 Rheumatoid arthritis with rheumatoid factor of multiple sites without organ or systems involvement (principal)

== ENCOUNTER 2020-12-18 12:27 | Inpatient (IN) | payer MEDICARE ==
[~2020-12-18] VITALS: Ht 160 cm; Wt 147.5 kg
[2020-12-18 12:37] VITALS: BP 134/60
[2020-12-18 13:43] LABS: BILIRUBIN Negative (Negative); BLOOD 2+ (Negative); CLARITY Clear (Clear); COLOR Yellow (Yellow); GLUCOSE Negative (Negative); KETONE Negative (Negative); LEUKO ESTERASE Negative (Negative); NITRITE Negative (Negative); PH 5.5 (4.5-8.0); SPECIFIC GRAVITY <= 1.005 (1.001-1.030)
[2020-12-18 13:52] LABS: BASO % 0.5 % (0.0-1.0); EOS # 0.2 10*3/uL (0.0-0.4); EOS % 2.2 % (1.0-4.0); HEMATOCRIT 54.1 % (37.0-47.0); LYMPH # 0.5 10*3/uL (1.3-4.4); LYMPH % 6.2 % (27.0-41.0); MEAN CELL VOLUME 98.4 fl (81.0-99.0); MEAN CORPUSCULAR HGB 29.3 pg (27.0-31.0); MEAN CORPUSCULAR HGB CONC 29.8 g/dl (33.0-37.0); MEAN PLATELET VOLUME 10.5 fl (9.6-12.3); MONO # 0.8 10*3/uL (0.1-1.0); MONO % 9.9 % (3.0-9.0); NEUT # 6.9 10*3/uL (2.3-7.9); NEUT % 80.8 % (47.0-73.0); PLATELET COUNT AUTOMATED 149 10*3/uL (130-400); RED CELL DISTRI WIDTH 17.8 % (0-14.5); WHITE BLOOD COUNT 8.5 10*3/uL (4.8-10.8)
[2020-12-18 14:04] VITALS: BP 121/60
[2020-12-18 14:11] LABS: ALBUMIN 2.9 gm/dl (3.1-4.5); ALKALINE PHOSPHATASE 88 U/L (45-117); BUN 32 mg/dl (7-24); CHLORIDE 103 mmol/L (98-107); CREATININE 1.41 mg/dL (0.55-1.02); SGOT/AST 11 IU/L (3-35); SGPT/ALT 14 U/L (12-78); SODIUM 136 mmol/L (136-145); TOTAL PROTEIN 6.9 gm/dL (6.4-8.2)
[2020-12-18 14:17] LABS: POTASSIUM 6.7 mmol/L (3.5-5.1)
[2020-12-18 14:18] LABS: TROPONIN I < 0.015 ng/ml (<0.045)
[2020-12-18 15:26] VITALS: BP 122/61
[2020-12-18 16:00] VITALS: BP 117/42
[2020-12-18] MEDS ORDERED: XELJANZ5 M1 PO (16:23)
[2020-12-18 20:00] VITALS: BP 110/50
[2020-12-19] VITALS: BP 101/51
[2020-12-19 06:21] LABS: BASO % 0.3 % (0.0-1.0); EOS # 0.2 10*3/uL (0.0-0.4); EOS % 2.8 % (1.0-4.0); HEMATOCRIT 49.8 % (37.0-47.0); LYMPH # 0.4 10*3/uL (1.3-4.4); LYMPH % 5.8 % (27.0-41.0); MEAN CORPUSCULAR HGB 28.7 pg (27.0-31.0); MEAN CORPUSCULAR HGB CONC 28.7 g/dl (33.0-37.0); MEAN PLATELET VOLUME 10.4 fl (9.6-12.3); MONO # 0.8 10*3/uL (0.1-1.0); MONO % 10.6 % (3.0-9.0); NEUT # 6.1 10*3/uL (2.3-7.9); NEUT % 80.2 % (47.0-73.0); PLATELET COUNT AUTOMATED 160 10*3/uL (130-400); RED BLOOD COUNT 4.98 10*6/uL (4.10-5.10); RED CELL DISTRI WIDTH 17.5 % (0-14.5); WHITE BLOOD COUNT 7.6 10*3/uL (4.8-10.8)
[2020-12-19 06:33] LABS: CREATININE 1.51 mg/dL (0.55-1.02); POTASSIUM 5.8 mmol/L (3.5-5.1)
[2020-12-19 08:00] VITALS: BP 108/54
[2020-12-19 12:00] VITALS: BP 114/85
[2020-12-19 16:00] VITALS: BP 110/46
[2020-12-19 20:00] VITALS: BP 100/42
[2020-12-20] VITALS: BP 92/47
[2020-12-20 06:41] LABS: CREATININE 1.55 mg/dL (0.55-1.02); POTASSIUM 5.6 mmol/L (3.5-5.1)
[2020-12-20 08:00] VITALS: BP 110/55; BP 130/99
[2020-12-20 12:00] VITALS: BP 125/75
[2020-12-20 16:00] VITALS: BP 109/45
[2020-12-20 20:00] VITALS: BP 123/44; BP 125/75
[2020-12-20 21:58] VITALS: BP 132/60
[2020-12-21] VITALS: BP 98/50
[2020-12-21 07:16] LABS: CREATININE 1.33 mg/dL (0.55-1.02); POTASSIUM 4.8 mmol/L (3.5-5.1)
[2020-12-21 08:00] VITALS: BP 99/43
[2020-12-21 12:00] VITALS: BP 115/63
[2020-12-21 16:00] VITALS: BP 130/55
[2020-12-21 20:00] VITALS: BP 114/50
[2020-12-22] VITALS: BP 120/56
[2020-12-22 07:47] VITALS: BP 134/43
[2020-12-22 12:00] VITALS: BP 122/49
[2020-12-22 16:00] VITALS: BP 128/43
[2020-12-22 20:00] VITALS: BP 130/45
[2020-12-23] VITALS: BP 109/52
[2020-12-23 06:01] LABS: BASO % 0.4 % (0.0-1.0); EOS # 0.2 10*3/uL (0.0-0.4); HEMATOCRIT 47.5 % (37.0-47.0); LYMPH # 0.7 10*3/uL (1.3-4.4); LYMPH % 13.3 % (27.0-41.0); MEAN CELL VOLUME 99.4 fl (81.0-99.0); MEAN CORPUSCULAR HGB 29.3 pg (27.0-31.0); MEAN CORPUSCULAR HGB CONC 29.5 g/dl (33.0-37.0); MONO # 0.6 10*3/uL (0.1-1.0); MONO % 11.3 % (3.0-9.0); NEUT # 3.5 10*3/uL (2.3-7.9); NEUT % 70.8 % (47.0-73.0); PLATELET COUNT AUTOMATED 144 10*3/uL (130-400); RED BLOOD COUNT 4.78 10*6/uL (4.10-5.10); RED CELL DISTRI WIDTH 16.6 % (0-14.5)
[2020-12-23 06:13] LABS: BUN 30 mg/dl (7-24); CHLORIDE 101 mmol/L (98-107); CREATININE 0.94 mg/dL (0.55-1.02); POTASSIUM 4.5 mmol/L (3.5-5.1); SODIUM 141 mmol/L (136-145)
[2020-12-23 08:00] VITALS: BP 138/58
[2020-12-23 12:00] VITALS: BP 115/47
[2020-12-23 16:00] VITALS: BP 114/46
[2020-12-23 20:00] VITALS: BP 128/90
[2020-12-24] VITALS: BP 127/42
[2020-12-24 05:14] LABS: BUN 25 mg/dl (7-24); CHLORIDE 95 mmol/L (98-107); CREATININE 0.85 mg/dL (0.55-1.02); POTASSIUM 3.7 mmol/L (3.5-5.1); SODIUM 136 mmol/L (136-145)
[2020-12-24 05:50] VITALS: BP 130/59
[2020-12-24 08:00] VITALS: BP 118/55
[2020-12-24 12:00] VITALS: BP 98/53
[2020-12-24 16:00] VITALS: BP 109/56
[2020-12-24 20:00] VITALS: BP 125/75
[2020-12-25] VITALS: BP 102/44
[2020-12-25 06:40] LABS: BUN 22 mg/dl (7-24); CHLORIDE 95 mmol/L (98-107); POTASSIUM 3.4 mmol/L (3.5-5.1); SODIUM 138 mmol/L (136-145)
[2020-12-25 08:00] VITALS: BP 110/58
[2020-12-25 12:00] VITALS: BP 103/40
[2020-12-25 16:00] VITALS: BP 111/60
[2020-12-25 20:00] VITALS: BP 111/88; BP 157/80
[2020-12-26] VITALS: BP 123/68
[2020-12-26 05:30] VITALS: BP 115/71
[2020-12-26 06:21] LABS: BASO % 0.6 % (0.0-1.0); EOS # 0.2 10*3/uL (0.0-0.4); EOS % 3.4 % (1.0-4.0); HEMATOCRIT 53.4 % (37.0-47.0); LYMPH # 0.9 10*3/uL (1.3-4.4); LYMPH % 13.7 % (27.0-41.0); MEAN CELL VOLUME 98.3 fl (81.0-99.0); MEAN CORPUSCULAR HGB 29.1 pg (27.0-31.0); MEAN CORPUSCULAR HGB CONC 29.6 g/dl (33.0-37.0); MEAN PLATELET VOLUME 10.8 fl (9.6-12.3); MONO # 0.7 10*3/uL (0.1-1.0); MONO % 11.5 % (3.0-9.0); NEUT # 4.5 10*3/uL (2.3-7.9); NEUT % 70.5 % (47.0-73.0); PLATELET COUNT AUTOMATED 161 10*3/uL (130-400); RED BLOOD COUNT 5.43 10*6/uL (4.10-5.10); RED CELL DISTRI WIDTH 15.9 % (0-14.5); WHITE BLOOD COUNT 6.4 10*3/uL (4.8-10.8)
[2020-12-26 06:51] LABS: BUN 24 mg/dl (7-24); CHLORIDE 94 mmol/L (98-107); CREATININE 0.92 mg/dL (0.55-1.02); POTASSIUM 3.5 mmol/L (3.5-5.1); SODIUM 137 mmol/L (136-145)
[2020-12-26 08:00] VITALS: BP 118/70
[2020-12-26 12:00] VITALS: BP 114/64
[2020-12-26 16:00] VITALS: BP 114/68
[2020-12-26 20:00] VITALS: BP 100/52
[2020-12-27] VITALS: BP 99/60
[2020-12-27 06:39] LABS: BUN 27 mg/dl (7-24); CHLORIDE 96 mmol/L (98-107); CREATININE 0.94 mg/dL (0.55-1.02); POTASSIUM 3.8 mmol/L (3.5-5.1); SODIUM 133 mmol/L (136-145)
[2020-12-27 07:50] VITALS: BP 106/64
[2020-12-27] MEDS ORDERED: KLOR-CON M2020 ME1 PO (09:52)
[2020-12-27] MEDS ORDERED: COREG12.5 M1 PO (09:52)
[2020-12-27] MEDS ORDERED: ACETAZOLAMIDE250 MG PO (09:56)
[2020-12-27 12:00] VITALS: BP 94/58
== END 2020-12-27 15:10 | disposition home health service (06) | DRG 291 ==
LOC: ED 12:27 → EDHOLD 14:34 → 5E 14:34
PROVIDERS: Internal Medicine Nephrology; Physician Assistant; ADMIT Internal Medicine; ATTEND Internal Medicine
PROC: 0HBRXZZ Excision of Toe Nail, External Approach (ICD-10-PCS; principal; 2020-12-25)
PROC: 0HBRXZZ Excision of Toe Nail, External Approach (ICD-10-PCS; 2020-12-25)
PROC: 0HBRXZZ Excision of Toe Nail, External Approach (ICD-10-PCS; 2020-12-25)
PROC: 0HBRXZZ Excision of Toe Nail, External Approach (ICD-10-PCS; 2020-12-25)
PROC: 0HBRXZZ Excision of Toe Nail, External Approach (ICD-10-PCS; 2020-12-25)
PROC: 0HBRXZZ Excision of Toe Nail, External Approach (ICD-10-PCS; 2020-12-25)
PROC: 0HBRXZZ Excision of Toe Nail, External Approach (ICD-10-PCS; 2020-12-25)
PROC: 0HBRXZZ Excision of Toe Nail, External Approach (ICD-10-PCS; 2020-12-25)
PROC: 0HBRXZZ Excision of Toe Nail, External Approach (ICD-10-PCS; 2020-12-25)
PROC: 0HBRXZZ Excision of Toe Nail, External Approach (ICD-10-PCS; 2020-12-25)
DX: I13.0 Hypertensive heart and chronic kidney disease with heart failure and stage 1 through stage 4 chronic kidney disease, or unspecified chronic kidney disease (principal); I50.33 Acute on chronic diastolic (congestive) heart failure; J96.20 Acute and chronic respiratory failure, unspecified whether with hypoxia or hypercapnia; L03.115 Cellulitis of right lower limb; N17.9 Acute kidney failure, unspecified; Z68.44 Body mass index [BMI] 60.0-69.9, adult; I48.21 Permanent atrial fibrillation; L03.116 Cellulitis of left lower limb; E87.5 Hyperkalemia; J44.9 Chronic obstructive pulmonary disease, unspecified; R26.2 Difficulty in walking, not elsewhere classified; I87.2 Venous insufficiency (chronic) (peripheral); E87.6 Hypokalemia; N95.0 Postmenopausal bleeding; N18.31 Chronic kidney disease, stage 3a; M06.9 Rheumatoid arthritis, unspecified; Z20.822 Contact with and (suspected) exposure to COVID-19; E66.01 Morbid (severe) obesity due to excess calories; R62.7 Adult failure to thrive; E78.5 Hyperlipidemia, unspecified; Z79.899 Other long term (current) drug therapy; Z79.01 Long term (current) use of anticoagulants; Z98.891 History of uterine scar from previous surgery

== ENCOUNTER → 2021-01-04 | Outpatient (CLI) | payer MEDICARE ==
[~2021-01-04] MED LIST changes: +ACETAZOLAMIDE250 MG PO; +COREG12.5 M1 PO; +KLOR-CON M2020 ME1 PO; +XELJANZ5 M1 PO
[2021-01-04 12:57] LABS: BASO % 0.3 % (0.0-1.0); EOS # 0.4 10*3/uL (0.0-0.4); EOS % 4.1 % (1.0-4.0); HEMATOCRIT 49.9 % (37.0-47.0); LYMPH # 0.4 10*3/uL (1.3-4.4); LYMPH % 3.8 % (27.0-41.0); MEAN CELL VOLUME 95.6 fl (81.0-99.0); MEAN CORPUSCULAR HGB 29.5 pg (27.0-31.0); MEAN CORPUSCULAR HGB CONC 30.9 g/dl (33.0-37.0); MEAN PLATELET VOLUME 11.7 fl (9.6-12.3); MONO % 10.3 % (3.0-9.0); NEUT # 7.6 10*3/uL (2.3-7.9); NEUT % 81.3 % (47.0-73.0); PLATELET COUNT AUTOMATED 240 10*3/uL (130-400); RED BLOOD COUNT 5.22 10*6/uL (4.10-5.10); RED CELL DISTRI WIDTH 16.4 % (0-14.5); WHITE BLOOD COUNT 9.3 10*3/uL (4.8-10.8)
[2021-01-04 13:13] LABS: ALBUMIN 3.2 gm/dl (3.1-4.5); CREATININE 2.47 mg/dL (0.55-1.02); POTASSIUM 4.2 mmol/L (3.5-5.1)
== END | disposition home or self-care (01) ==
LOC: LAB 12:43
PROVIDERS: ATTEND Family Medicine
DX: I50.9 Heart failure, unspecified (principal); N18.30 Chronic kidney disease, stage 3 unspecified

== ENCOUNTER 2021-01-08 15:29 | Emergency (ER) | payer MEDICARE ==
[~2021-01-08] VITALS: Ht 160 cm; Wt 142.4 kg
[2021-01-08 16:17] LABS: BILIRUBIN 2+ (Negative); BLOOD 3+ (Negative); CLARITY Turbid (Clear); GLUCOSE Negative (Negative); KETONE Negative (Negative); LEUKO ESTERASE 3+ (Negative); NITRITE Positive (Negative); SPECIFIC GRAVITY 1.015 (1.001-1.030); UROBILINOGEN 0.2 E.U./dl (0.0-1.0)
[2021-01-08 16:38] LABS: COLOR Red (Yellow)
[2021-01-08 16:39] LABS: RBC TNTC rbc/hpf (0-2)
[2021-01-08 17:13] LABS: BASO % 0.4 % (0.0-1.0); EOS # 0.5 10*3/uL (0.0-0.4); EOS % 4.8 % (1.0-4.0); HEMATOCRIT 50.2 % (37.0-47.0); LYMPH # 0.5 10*3/uL (1.3-4.4); LYMPH % 4.6 % (27.0-41.0); MEAN CELL VOLUME 93.7 fl (81.0-99.0); MEAN CORPUSCULAR HGB 29.7 pg (27.0-31.0); MEAN CORPUSCULAR HGB CONC 31.7 g/dl (33.0-37.0); MEAN PLATELET VOLUME 11.2 fl (9.6-12.3); MONO % 9.5 % (3.0-9.0); NEUT # 8.1 10*3/uL (2.3-7.9); NEUT % 80.2 % (47.0-73.0); PLATELET COUNT AUTOMATED 302 10*3/uL (130-400); RED BLOOD COUNT 5.36 10*6/uL (4.10-5.10); RED CELL DISTRI WIDTH 15.7 % (0-14.5); WHITE BLOOD COUNT 10.1 10*3/uL (4.8-10.8)
[2021-01-08 17:23] LABS: INTERNATIONAL NORM RATIO 1.1 (2.0-3.5)
[2021-01-08 17:28] LABS: ALBUMIN 3.6 gm/dl (3.1-4.5); CREATININE 1.25 mg/dL (0.55-1.02); POTASSIUM 3.9 mmol/L (3.5-5.1); TOTAL PROTEIN 8.8 gm/dL (6.4-8.2)
== END 2021-01-09 03:41 | disposition short-term general hospital (02) ==
LOC: ED 15:29
PROVIDERS: Nurse Practitioner
DX: N95.0 Postmenopausal bleeding (principal); Z79.899 Other long term (current) drug therapy; Z98.890 Other specified postprocedural states

== ENCOUNTER → 2021-01-12 | Outpatient (CLI) | payer MEDICARE ==
[2021-01-12 12:49] LABS: ALBUMIN 3.5 gm/dl (3.1-4.5); CREATININE 1.28 mg/dL (0.55-1.02); POTASSIUM 3.5 mmol/L (3.5-5.1); TOTAL PROTEIN 8.3 gm/dL (6.4-8.2)
== END | disposition home or self-care (01) ==
LOC: LAB 11:49
PROVIDERS: ATTEND Family Medicine
DX: N18.30 Chronic kidney disease, stage 3 unspecified (principal); E87.1 Hypo-osmolality and hyponatremia

== ENCOUNTER → 2021-04-13 | Outpatient (CLI) | payer MEDICARE ==
[2021-04-13 21:37] LABS: ALBUMIN 2.9 gm/dl (3.1-4.5); ALKALINE PHOSPHATASE 106 U/L (45-117); BUN 7 mg/dl (7-24); CHLORIDE 100 mmol/L (98-107); CREATININE 0.89 mg/dL (0.55-1.02); POTASSIUM 3.7 mmol/L (3.5-5.1); SGOT/AST 14 IU/L (3-35); SGPT/ALT 8 U/L (12-78); SODIUM 133 mmol/L (136-145); TOTAL PROTEIN 7.8 gm/dL (6.4-8.2)
== END | disposition home or self-care (01) ==
LOC: LAB 19:46
PROVIDERS: ATTEND Nurse Practitioner Family
DX: I10 Essential (primary) hypertension (principal); R60.9 Edema, unspecified; Z79.01 Long term (current) use of anticoagulants

== ENCOUNTER → 2021-07-31 | Outpatient (CLI) | payer MEDICARE ==
[2021-07-31 14:39] LABS: INTERNATIONAL NORM RATIO 1.2 (2.0-3.5)
== END | disposition home or self-care (01) ==
LOC: LAB 13:56
PROVIDERS: ATTEND Family Medicine
DX: Z79.01 Long term (current) use of anticoagulants (principal)

== ENCOUNTER 2022-03-19 21:15 | Emergency (ER) | payer MEDICARE ==
[~2022-03-19] VITALS: Wt 160.4 kg
[~2022-03-19 21:15] MED LIST changes: +ALDACTONE25 MG PO; +BUMETANIDE1 MG PO; +BUMETANIDE2 MG PO; +COREG3.125 MG PO; +Coumadin2 MG PO; +Lanoxin PO; +SERTRALINE HYDR25 MG PO; +URE-NA15 GM PO
[2022-03-19 21:47] LABS: BASO % 0.3 % (0.0-1.0); EOS # 0.2 10*3/uL (0.0-0.4); EOS % 1.9 % (1.0-4.0); HEMATOCRIT 43.4 % (37.0-47.0); LYMPH # 0.6 10*3/uL (1.3-4.4); LYMPH % 5.6 % (27.0-41.0); MEAN CELL VOLUME 94.3 fl (81.0-99.0); MEAN CORPUSCULAR HGB 26.3 pg (27.0-31.0); MEAN CORPUSCULAR HGB CONC 27.9 g/dl (33.0-37.0); MEAN PLATELET VOLUME 11.7 fl (9.6-12.3); MONO # 1.2 10*3/uL (0.1-1.0); MONO % 11.7 % (3.0-9.0); NEUT # 8.2 10*3/uL (2.3-7.9); NEUT % 79.8 % (47.0-73.0); PLATELET COUNT AUTOMATED 106 10*3/uL (130-400); RED CELL DISTRI WIDTH 20.6 % (0-14.5); WHITE BLOOD COUNT 10.3 10*3/uL (4.8-10.8)
[2022-03-19 22:00] LABS: ALKALINE PHOSPHATASE 82 U/L (45-117); BUN 44 mg/dl (7-24); CHLORIDE 100 mmol/L (98-107); CREATININE 0.95 mg/dL (0.55-1.02); POTASSIUM 5.3 mmol/L (3.5-5.1); SGOT/AST 43 IU/L (3-35); SGPT/ALT 19 U/L (12-78); SODIUM 136 mmol/L (136-145); TOTAL PROTEIN 7.1 gm/dL (6.4-8.2)
[2022-03-19 22:10] LABS: BILIRUBIN 1+ (Negative); BLOOD 3+ (Negative); CLARITY Cloudy (Clear); COLOR Orange (Yellow); GLUCOSE Negative (Negative); KETONE Negative (Negative); LEUKO ESTERASE 3+ (Negative); NITRITE Negative (Negative)
[2022-03-19 22:20] LABS: EPITHELIAL CELLS 41-50
[2022-03-19 22:21] LABS: BACTERIA 2+; RBC 21-30 rbc/hpf (0-2); WBC 41-50 wbc/hpf (0-5)
[2022-03-19 22:52] LABS: ABG BASE EXCESS 12.5 mmol/L (-2.0-2.0); ARTERIAL BLOOD GAS PH 7.402 (7.35-7.45); ARTERIAL BLOOD GAS PO2 128.2 (80-90)
[2022-03-20 01:16] LABS: ABG BASE EXCESS 13.7 mmol/L (-2.0-2.0); ARTERIAL BLOOD GAS PH 7.404 (7.35-7.45); ARTERIAL BLOOD GAS PO2 90.2 (80-90)
== END 2022-03-20 15:56 | disposition short-term general hospital (02) ==
LOC: ED 21:15
PROVIDERS: Emergency Medicine
DX: J96.21 Acute and chronic respiratory failure with hypoxia (principal); J96.22 Acute and chronic respiratory failure with hypercapnia; I50.9 Heart failure, unspecified; Z98.890 Other specified postprocedural states